=== PATIENT | female | born 1945 | race Caucasian/White ===

== ENCOUNTER 2017-06-01 08:33 | Inpatient (IN) | payer MEDICARE ==
[~2017-06-01] VITALS: Ht 162.6 cm; Wt 120.0 kg
[2017-06-01] MEDS ORDERED: OXYBUTYNIN10 MG PO (08:49)
[2017-06-01] MEDS ORDERED: METOPROLOL50 M1 PO (08:50)
[2017-06-01] MEDS ORDERED: AMLODIPINE5 MG PO (08:51)
[2017-06-01] MEDS ORDERED: LOSARTAN POT50 MG PO (08:51)
[2017-06-01] MEDS ORDERED: FUROSEMIDE20 MG PO (08:52)
[2017-06-01] MEDS ORDERED: LEVOTHYROXIN75 MCG PO (08:52)
[2017-06-01] MEDS ORDERED: TEMAZEPAM15 MG PO (08:53)
[2017-06-01] MEDS ORDERED: ELAVIL (08:53)
[2017-06-01] MEDS ORDERED: RISPERDAL M1 MG PO (08:53)
[2017-06-01] MEDS ORDERED: MULT VITAMI1 PO (08:54)
[2017-06-01] MEDS ORDERED: ASPIRIN LOW DOS81 MG PO (08:54)
[2017-06-01] MEDS ORDERED: CITALOPRAM40 MG PO (08:54)
[2017-06-01] MEDS ORDERED: CITALOPRAM20 MG PO (08:55)
[2017-06-01] MEDS ORDERED: BREO ELLIPTA 101 INH (08:56)
[2017-06-01] MEDS ORDERED: LORCET 5-325 MG1 TAB (08:56)
[2017-06-01] MEDS ORDERED: CLONAZEP ODT0.5 MG PO (08:57)
[2017-06-01] MEDS ORDERED: LANTUS100 UNIT/M (08:57)
[2017-06-01 09:19] LABS: HEMATOCRIT 39.5 % (37.0-47.0); HEMOGLOBIN 12.7 g/dl (12.0-16.0); IMMATURE GRANULOCYTES 0.3 % (0.0-1.0); MEAN CELL VOLUME 95.9 fL CALC (80.0-100.0); MEAN CORPUSCULAR HGB 30.8 pG CALC (26.0-32.0); MEAN CORPUSCULAR HGB CONC 32.2 g/L CALC (32.0-36.0); NEUT# 6.16 thou/uL (2.00-7.15); RED BLOOD COUNT 4.12 mill/uL (4.20-5.60); RED CELL DISTRI WIDTH 13.8 % (11.5-15.5)
[2017-06-01 09:20] LABS: URINE BILIRUBIN - DIPSTICK NEGATIVE (NEGATIVE); URINE BLOOD DIPSTICK NEGATIVE (NEGATIVE); URINE CLARITY SLIGHT CLOUDY; URINE COLOR YELLOW; URINE GLUCOSE - DIPSTICK NEGATIVE (NEGATIVE); URINE KETONE NEGATIVE (NEGATIVE); URINE PROTEIN - DIPSTICK NEGATIVE (NEG-TRACE); URINE UROBILINOGEN - DIPSTICK 0.2 E.U./dL (0.2)
[2017-06-01 09:31] LABS: ALBUMIN 4.1 g/dL (3.2-5.0); ALKALINE PHOSPHATASE 99 u/l (38-126); ANION GAP 16 (6-22 (CALC)); BILIRUBIN, TOTAL 0.6 mg/dL (0.0-1.4); BUN 22 mg/dL (8-23); BUN/CREATININE RATIO 18 (12-20 (CALC)); CALCIUM 9.9 mg/dL (8.4-10.2); CARBON DIOXIDE 27 mmol/l (22-30); CHLORIDE 104 mmol/l (95-108); CREATININE 1.2 mg/dL (0.5-1.0); GFR 45 ML/MIN (>=60 (CALC)); GFR FOR AFR.AMER. 54 ML/MIN (>=60 (CALC)); GLUCOSE 149 mg/dL (82-115); POTASSIUM 4.1 mmol/l (3.5-5.1); SGOT/AST 29 u/l (9-36); SGPT/ALT 37 u/l (11-66); SODIUM 143 mmol/l (137-146); TOTAL PROTEIN 7.3 g/dL (6.3-8.2)
[2017-06-01 09:34] LABS: URINE LEUK ESTERASE SMALL (NEGATIVE); URINE NITRITE - DIPSTICK POSITIVE (Negative)
[2017-06-01 09:41] LABS: URINE BACTERIA MANY hpf; URINE RBC 0-2 RBC/hpf (0-5)
[2017-06-01 09:43] LABS: MYOGLOBIN 44 ng/mL (0 - 62)
[2017-06-01 12:18] VITALS: BP 126/58
[2017-06-01 16:45] VITALS: BP 129/60
[2017-06-01 19:33] VITALS: BP 123/51
[2017-06-01 23:29] VITALS: BP 127/47
[2017-06-02 04:30] VITALS: BP 127/58
[2017-06-02 05:37] LABS: HEMATOCRIT 32.8 % (37.0-47.0); HEMOGLOBIN 10.4 g/dl (12.0-16.0); IMMATURE GRANULOCYTES 0.4 % (0.0-1.0); MEAN CELL VOLUME 95.9 fL CALC (80.0-100.0); MEAN CORPUSCULAR HGB 30.4 pG CALC (26.0-32.0); MEAN CORPUSCULAR HGB CONC 31.7 g/L CALC (32.0-36.0); NEUT# 6.79 thou/uL (2.00-7.15); RED BLOOD COUNT 3.42 mill/uL (4.20-5.60); RED CELL DISTRI WIDTH 14.1 % (11.5-15.5)
[2017-06-02 05:47] LABS: ANION GAP 10 (6-22 (CALC)); BUN 19 mg/dL (8-23); BUN/CREATININE RATIO 19 (12-20 (CALC)); CALCIUM 8.8 mg/dL (8.4-10.2); CARBON DIOXIDE 26 mmol/l (22-30); CHLORIDE 110 mmol/l (95-108); GFR 55 ML/MIN (>=60 (CALC)); GFR FOR AFR.AMER. > 60 ML/MIN (>=60 (CALC)); GLUCOSE 79 mg/dL (82-115); POTASSIUM 3.9 mmol/l (3.5-5.1); SODIUM 141 mmol/l (137-146)
[2017-06-02 08:22] VITALS: BP 129/54
[2017-06-02 11:00] VITALS: BP 128/62
[2017-06-02] MEDS ORDERED: KEFLEX500 M1 PO (12:57)
== END 2017-06-02 15:05 | disposition home or self-care (01) | DRG 872 ==
LOC: ED 08:33 → ED-I 10:14 → ED 10:50 → MS2 10:51
PROVIDERS: Emergency Medicine; ADMIT Internal Medicine; ATTEND Internal Medicine
DX: A41.9 Sepsis, unspecified organism (principal); N17.9 Acute kidney failure, unspecified; E87.2 Acidosis; E11.22 Type 2 diabetes mellitus with diabetic chronic kidney disease; N39.0 Urinary tract infection, site not specified; Z68.42 Body mass index [BMI] 45.0-49.9, adult; R65.20 Severe sepsis without septic shock; B96.20 Unspecified Escherichia coli [E. coli] as the cause of diseases classified elsewhere; J44.9 Chronic obstructive pulmonary disease, unspecified; E03.9 Hypothyroidism, unspecified; E86.0 Dehydration; E66.9 Obesity, unspecified; F32.9 Major depressive disorder, single episode, unspecified; G89.29 Other chronic pain; M54.5 Low back pain; I12.9 Hypertensive chronic kidney disease with stage 1 through stage 4 chronic kidney disease, or unspecified chronic kidney disease; N18.2 Chronic kidney disease, stage 2 (mild); Z79.4 Long term (current) use of insulin

== ENCOUNTER 2018-07-10 16:48 | Emergency (ER) | payer MEDICARE ==
[~2018-07-10] VITALS: Ht 162.6 cm; Wt 118.0 kg
[~2018-07-10 16:48] MED LIST: AMLODIPINE5 MG PO; ASPIRIN LOW DOS81 MG PO; BREO ELLIPTA 101 INH; CITALOPRAM20 MG PO; CITALOPRAM40 MG PO; CLONAZEP ODT0.5 MG PO; ELAVIL; FUROSEMIDE20 MG PO; KEFLEX500 M1 PO; LANTUS100 UNIT/M; LEVOTHYROXIN75 MCG PO; LORCET 5-325 MG1 TAB; LOSARTAN POT50 MG PO; METOPROLOL50 M1 PO; MULT VITAMI1 PO; OXYBUTYNIN10 MG PO; RISPERDAL M1 MG PO; TEMAZEPAM15 MG PO
[2018-07-10 18:02] LABS: HEMATOCRIT 37.6 % (37.0-47.0); HEMOGLOBIN 11.8 g/dl (12.0-16.0); IMMATURE GRANULOCYTES 0.3 % (0.0-5.0); MEAN CELL VOLUME 94.2 fL CALC (80.0-100.0); MEAN CORPUSCULAR HGB 29.6 pG CALC (26.0-32.0); MEAN CORPUSCULAR HGB CONC 31.4 g/L CALC (32.0-36.0); NEUT# 3.61 thou/uL (2.00-7.15); RED BLOOD COUNT 3.99 mill/uL (4.20-5.60); RED CELL DISTRI WIDTH 12.8 % (11.5-15.5)
[2018-07-10 18:18] LABS: ALBUMIN 3.9 g/dL (3.2-5.0); BILIRUBIN, TOTAL 0.4 mg/dL (0.0-1.4); CREATININE 1.1 mg/dL (0.5-1.0); POTASSIUM 4.6 mmol/l (3.5-5.1); TOTAL PROTEIN 6.7 g/dL (6.3-8.2)
[2018-07-10] MEDS ORDERED: PERCOCET 5/325M1 TAB PO (18:26)
[2018-07-10] MEDS ORDERED: CLEOCIN300 MG PO (18:26)
[2018-07-10 20:10] VITALS: BP 168/69
== END 2018-07-10 20:10 | disposition home or self-care (01) ==
LOC: ED 16:48
PROVIDERS: Emergency Medicine
PROC: 0H97XZZ Drainage of Abdomen Skin, External Approach (ICD-10-PCS; principal; 2018-07-10)
DX: L02.211 Cutaneous abscess of abdominal wall (principal); B95.62 Methicillin resistant Staphylococcus aureus infection as the cause of diseases classified elsewhere

== ENCOUNTER 2019-01-12 20:28 | Emergency (ER) | payer MEDICARE ==
[~2019-01-12] VITALS: Ht 162.6 cm; Wt 127.3 kg
[~2019-01-12 20:28] MED LIST changes: +CLEOCIN300 MG PO; +PERCOCET 5/325M1 TAB PO
[2019-01-12 22:17] LABS: URINE BILIRUBIN - DIPSTICK NEGATIVE (NEGATIVE); URINE BLOOD DIPSTICK NEGATIVE (NEGATIVE); URINE COLOR YELLOW; URINE GLUCOSE - DIPSTICK NEGATIVE (NEGATIVE); URINE KETONE TRACE mg/dL (NEGATIVE); URINE NITRITE - DIPSTICK NEGATIVE (Negative); URINE PH 5.5 (4.5-8.0); URINE PROTEIN - DIPSTICK NEGATIVE (NEG-TRACE); URINE SPECIFIC GRAVITY 1.025
[2019-01-12 22:20] LABS: URINE LEUK ESTERASE SMALL (NEGATIVE)
[2019-01-12 22:26] LABS: HEMATOCRIT 39.7 % (37.0-47.0); HEMOGLOBIN 12.4 g/dl (12.0-16.0); IMMATURE GRANULOCYTES 0.4 % (0.0-5.0); MEAN CELL VOLUME 94.5 fL CALC (80.0-100.0); MEAN CORPUSCULAR HGB 29.5 pG CALC (26.0-32.0); MEAN CORPUSCULAR HGB CONC 31.2 g/L CALC (32.0-36.0); NEUT# 5.39 thou/uL (2.00-7.15); RED BLOOD COUNT 4.2 mill/uL (4.20-5.60); RED CELL DISTRI WIDTH 13.6 % (11.5-15.5)
[2019-01-12 22:35] LABS: ALBUMIN 3.9 g/dL (3.2-5.0); BILIRUBIN, TOTAL 0.4 mg/dL (0.0-1.4); CREATININE 1.1 mg/dL (0.5-1.0); POTASSIUM 4.4 mmol/l (3.5-5.1); TOTAL PROTEIN 6.6 g/dL (6.3-8.2)
[2019-01-12 22:37] LABS: URINE BACTERIA MODERATE hpf; URINE SQUAMOUS EPITHELIAL CELL FEW EPI/hpf (0-FEW)
[2019-01-12] MEDS ORDERED: CEPHALEXIN500 M1 PO (23:39)
[2019-01-13 01:59] VITALS: BP 170/73
== END 2019-01-13 02:15 | disposition home or self-care (01) ==
LOC: ED 20:28
PROVIDERS: Emergency Medicine
DX: N39.0 Urinary tract infection, site not specified (principal); B96.20 Unspecified Escherichia coli [E. coli] as the cause of diseases classified elsewhere; E11.9 Type 2 diabetes mellitus without complications; Z79.4 Long term (current) use of insulin; I10 Essential (primary) hypertension

== ENCOUNTER 2023-10-09 16:34 | Inpatient (IN) | payer MEDICARE ==
[2023-10-09] VITALS (16 sets, daily range): BP systolic 74–133; BP diastolic 24–61
[~2023-10-09] VITALS: Ht 157.5 cm; Wt 111.2 kg
[~2023-10-09 16:34] MED LIST changes: -AMLODIPINE5 MG PO; -BREO ELLIPTA 101 INH; +CEPHALEXIN500 M1 PO; -CLONAZEP ODT0.5 MG PO; -ELAVIL; +ELAVIL25 M1 PO; +KLONOPIN1 MG PO; +LANTUS100 UNIT SC; -LANTUS100 UNIT/M; -LORCET 5-325 MG1 TAB; +LORTAB 1010 MG PO; -METOPROLOL50 M1 PO; +NORVASC5 M1 PO; +OXYBUTYNIN CHLO10 MG PO; -OXYBUTYNIN10 MG PO; -RISPERDAL M1 MG PO; +RISPERDAL0.5 MG PO; +TOPROL XL50 MG PO; +TRELEGY ELLIPTA1 AER PO
--- NOTE | 2023-10-09 16:34 | NUR ---
PT TO ER ROOM 2 VIA EMS.
[2023-10-09 17:23] LABS: BASO% 0.1 % (0-3); HEMATOCRIT 39.6 % (37.0-47.0); HEMOGLOBIN 12.9 g/dl (12.0-16.0); IMMATURE GRANULOCYTES 0.5 % (0.0-5.0); LYMPH% 6.3 % (15-41); MEAN CORPUSCULAR HGB 29.2 pG CALC (26.0-32.0); MEAN CORPUSCULAR HGB CONC 32.6 g/dL CAL (32.0-36.0); MONO% 3.2 % (2-13); NEUT# 7.08 thou/uL (2.00-7.15); NEUT% 89.9 % (42-76); RED BLOOD COUNT 4.42 mill/uL (4.20-5.60); RED CELL DISTRI WIDTH 12.4 % (11.5-15.5)
[2023-10-09 17:25] LABS: MEAN CELL VOLUME 89.6 fL CALC (80.0-100.0)
[2023-10-09 17:32] LABS: ALBUMIN 4.1 g/dL (3.2-5.0); ALKALINE PHOSPHATASE 118 u/l (38-126); ANION GAP 14 (6-22 (CALC)); BUN 31 mg/dL (8-23); BUN/CREATININE RATIO 21 (12-20 (CALC)); CARBON DIOXIDE 23 mmol/l (22-30); CHLORIDE 103 mmol/l (95-108); CREATININE 1.5 mg/dL (0.5-1.0); GFR FOR AFR.AMER. 41 ML/MIN (>=60 (CALC)); GFR OTHER RACES 34 ML/MIN (>=60 (CALC)); POTASSIUM 4.7 mmol/l (3.5-5.1); SODIUM 135 mmol/l (137-146); TOTAL PROTEIN 7.1 g/dL (6.3-8.2)
[2023-10-09 17:36] LABS: BILIRUBIN, TOTAL 0.7 mg/dL (0.02-1.3); SGOT/AST 51 u/l (9-36)
--- NOTE | 2023-10-09 18:05 | NUR ---
PT RESTINGIN BED. VSS. FAMILY AT BEDSIDE. PT DENIES ANY NEEDS AT THIS TIME.
[2023-10-09 18:18] LABS: URINE BILIRUBIN - DIPSTICK Negative (NEGATIVE); URINE BLOOD DIPSTICK Negative (NEGATIVE); URINE CLARITY Clear; URINE GLUCOSE - DIPSTICK Negative (NEGATIVE); URINE KETONE Negative (NEGATIVE); URINE LEUK ESTERASE Trace (Negative); URINE NITRITE - DIPSTICK Negative (Negative); URINE PROTEIN - DIPSTICK Negative (NEG-TRACE); URINE UROBILINOGEN - DIPSTICK 0.2 E.U./dL (0.2)
[2023-10-09 18:19] LABS: URINE COLOR Yellow
--- NOTE | 2023-10-09 18:55 | NUR ---
MD IN ROOM WITH PATIENT TO DISCUSS PLAN OF CARE
[2023-10-09] MEDS ORDERED: COZAAR100 MG PO (19:03)
[2023-10-09] MEDS ORDERED: WELLBUTRIN XL300 MG PO (19:06)
--- NOTE | 2023-10-09 20:29 | NUR ---
[facility]
--- NOTE | 2023-10-09 20:57 | NUR ---
PT ARRIVED FROM ER VIA STRETCHER ACCOMPANIED BY STAFF. IV SITE IS FREE FROM REDNESS OR EDEMA. HR IS REG, PULSES ARE STRONG X4, ABD IS SOFT WITH ACTIVE BS. BREATH SOUNDS ARE CLEAR AND DIMINISHED, CONTINUE TO OSBERVE AND MONITOR.
--- NOTE | 2023-10-10 00:10 | NUR ---
PT IS RELAXING IN BED WITH NO DISTRESS NOTED. IV SITE IS FREE FROM REDNESS OR EDEMA.
--- NOTE | 2023-10-10 04:20 | NUR ---
PT IS RESTING IN BED WITHOUT DIFFICULTY. IV SITE IS FREE FROM REDNESS OR EDEMA. TELE MONTIOR IN PLACE.
[2023-10-10 05:06] VITALS: BP 135/61
[2023-10-10 05:42] LABS: BASO% 0.1 % (0-3); IMMATURE GRANULOCYTES 0.1 % (0.0-5.0); LYMPH% 24.8 % (15-41); MEAN CELL VOLUME 90.7 fL CALC (80.0-100.0); MEAN CORPUSCULAR HGB 28.9 pG CALC (26.0-32.0); MEAN CORPUSCULAR HGB CONC 31.9 g/dL CAL (32.0-36.0); MONO% 6.2 % (2-13); NEUT# 4.77 thou/uL (2.00-7.15); NEUT% 68.8 % (42-76); RED BLOOD COUNT 3.56 mill/uL (4.20-5.60); RED CELL DISTRI WIDTH 12.7 % (11.5-15.5)
[2023-10-10 05:48] LABS: HEMATOCRIT 32.3 % (37.0-47.0); HEMOGLOBIN 10.3 g/dl (12.0-16.0)
[2023-10-10 05:58] LABS: BILIRUBIN, TOTAL 0.6 mg/dL (0.02-1.3); CREATININE 1.2 mg/dL (0.5-1.0)
[2023-10-10 06:01] LABS: ALBUMIN 2.8 g/dL (3.2-5.0); TOTAL PROTEIN 5.1 g/dL (6.3-8.2)
[2023-10-10 07:44] VITALS: BP 121/46
--- NOTE | 2023-10-10 07:55 | NUR ---
PT AOX3, TEMP 97.5 AT THIS TIME. REPORTS PAIN IN BACK "FROM LAYING DOWN" WILL PROVIDE MEDICATIONS.
[2023-10-10 08:16] VITALS: BP 121/46
[2023-10-10] MEDS ORDERED: VENTOLIN HFA108 MCG PO (11:03)
[2023-10-10] MEDS ORDERED: ATORVASTATIN CA20 MG PO (11:04)
[2023-10-10] MEDS ORDERED: ARICEPT10 MG PO (11:04)
[2023-10-10] MEDS ORDERED: MOUNJARO5 MG SC (11:05)
--- NOTE | 2023-10-10 11:13 | NUR ---
[facility] BEDSIDE SPEAKING WITH PT ABOUT PLAN OF CARE.
--- NOTE | 2023-10-10 11:13 | NUR ---
AT BEDSIDE DISCUSSING POC WITH PT.
--- NOTE | 2023-10-10 12:21 | NUR ---
LAB AT BEDSIDE
[2023-10-10] MEDS ORDERED: AMOX/K CLAV875 M1 PO (13:06)
[2023-10-10] MEDS ORDERED: DOXYCYCLINE100 MG PO (13:06)
--- NOTE | 2023-10-10 14:51 | NUR ---
reviewed discharge instructions with pt. gio'vishnu iv, pt states understanding of instructions.
--- NOTE | 2023-10-10 16:01 | NUR ---
PT LEFT THE FLOOR VIA WHEELCHAIR STAFF TRANSOPORT WITH BELONGING IN HAND AND FAMILY AT HER SIDE.
--- NOTE | 2023-10-14 11:12 | NUR ---
Discharge follow up call completed today, 10/14/23. Mother states patient is so much better. They are grateful for the outstanding care the patient received and the kindness of staff. Patient is taking prescribed medication as directed without issue. Patient has a follow up appointment scheduled tomorrow. No needs or concerns to address at this time. Mother again expresses her profound gratitude for care her daughter received.
== END 2023-10-10 15:58 | disposition home or self-care (01) | DRG 195 ==
LOC: ED 16:34 → MS2 19:19
PROVIDERS: Emergency Medicine; Nurse Practitioner Family; ADMIT Student in an Organized Health Care Education/Training Program; ATTEND Student in an Organized Health Care Education/Training Program
DX: J18.9 Pneumonia, unspecified organism (principal); J43.9 Emphysema, unspecified; I10 Essential (primary) hypertension; E11.9 Type 2 diabetes mellitus without complications; E03.9 Hypothyroidism, unspecified; F32.A Depression, unspecified; G89.29 Other chronic pain; Z87.440 Personal history of urinary (tract) infections; Z79.4 Long term (current) use of insulin; Z87.891 Personal history of nicotine dependence; Z20.822 Contact with and (suspected) exposure to COVID-19
CPT/HCPCS: J1650; J3370

== ENCOUNTER 2024-04-09 19:07 | Emergency (ER) | payer MEDICARE ==
[~2024-04-09] VITALS: Ht 160 cm; Wt 97.0 kg
[~2024-04-09 19:07] MED LIST changes: +AMOX/K CLAV875 M1 PO; +ARICEPT10 MG PO; +ATORVASTATIN CA20 MG PO; +COZAAR100 MG PO; +DOXYCYCLINE100 MG PO; +MOUNJARO5 MG SC; +VENTOLIN HFA108 MCG PO; +WELLBUTRIN XL300 MG PO
[2024-04-09 19:14] VITALS: BP 127/54
[2024-04-09] MEDS ORDERED: SODIUM CHLORIDE 0.9% 1,000 ML IV ONE (19:20)
[2024-04-09 19:31] VITALS: BP 125/54
[2024-04-09 19:37] LABS: HEMATOCRIT 36.3 % (37.0-47.0); HEMOGLOBIN 11.4 g/dl (12.0-16.0); IMMATURE GRANULOCYTES 0.3 % (0.0-5.0); LYMPH% 42.9 % (15-41); MEAN CELL VOLUME 92.6 fL CALC (80.0-100.0); MEAN CORPUSCULAR HGB 29.1 pG CALC (26.0-32.0); MEAN CORPUSCULAR HGB CONC 31.4 g/dL CAL (32.0-36.0); MONO% 8.8 % (2-13); NEUT# 1.92 thou/uL (2.00-7.15); RED BLOOD COUNT 3.92 mill/uL (4.20-5.60); RED CELL DISTRI WIDTH 12.4 % (11.5-15.5)
[2024-04-09 19:51] LABS: ALBUMIN 3.3 g/dL (3.2-5.0); ALKALINE PHOSPHATASE 96 u/l (38-126); ANION GAP 6 (6-22 (CALC)); BILIRUBIN, TOTAL 0.4 mg/dL (0.02-1.3); BUN 26 mg/dL (8-23); BUN/CREATININE RATIO 15 (12-20 (CALC)); CARBON DIOXIDE 25 mmol/l (22-30); CHLORIDE 109 mmol/l (95-108); CPK 79 u/l (30-135); CREATININE 1.8 mg/dL (0.5-1.0); ESTIMATED GFR 29 ML/MIN (>=90 (CALC)); MAGNESIUM 2.1 mg/dL (1.6-2.3); POTASSIUM 4.2 mmol/l (3.5-5.1); SGOT/AST 23 u/l (9-36); SODIUM 136 mmol/l (137-146); TOTAL PROTEIN 5.8 g/dL (6.3-8.2)
[2024-04-09 20:08] VITALS: BP 129/50
[2024-04-09 20:13] LABS: URINE BLOOD DIPSTICK Negative (NEGATIVE); URINE GLUCOSE - DIPSTICK Negative (NEGATIVE); URINE KETONE Negative (NEGATIVE); URINE NITRITE - DIPSTICK Negative (Negative); URINE PH 5.5 (4.5-8.0); URINE PROTEIN - DIPSTICK Negative (NEG-TRACE)
[2024-04-09 20:14] LABS: URINE COLOR Yellow; URINE LEUK ESTERASE Small (NEGATIVE)
[2024-04-09 20:19] LABS: URINE WBC 20-50 WBC/hpf (0-5)
[2024-04-09 20:20] LABS: URINE RBC 0-2 RBC/hpf (0-5)
[2024-04-09 20:21] LABS: URINE BACTERIA MANY hpf; URINE SQUAMOUS EPITHELIAL CELL FEW EPI/hpf (0-FEW)
[2024-04-09 20:21] LABS: TSH, 3RD GENERATION 0.92 uIU/mL (0.47 - 4.68)
[2024-04-09 20:22] LABS: URINE HYALINE CAST FEW lpf (NONE-RARE)
[2024-04-09 20:30] VITALS: BP 125/47
[2024-04-09] MEDS ORDERED: SULFAMETHOXAZOLE W/TRIMETHOPRI 1 COMBO TAB PO ONE (20:55)
[2024-04-09] MEDS ORDERED: BACTRIM DS1 TAB PO (20:55)
[2024-04-09 21:01] VITALS: BP 141/64
[2024-04-09 21:20] VITALS: BP 141/64
== END 2024-04-09 21:20 | disposition home or self-care (01) ==
LOC: ED 19:07
PROVIDERS: Family Medicine
DX: N39.0 Urinary tract infection, site not specified (principal); B96.1 Klebsiella pneumoniae [K. pneumoniae] as the cause of diseases classified elsewhere; I10 Essential (primary) hypertension; E11.9 Type 2 diabetes mellitus without complications; J44.9 Chronic obstructive pulmonary disease, unspecified; F32.A Depression, unspecified; E03.9 Hypothyroidism, unspecified; L89.321 Pressure ulcer of left buttock, stage 1; Z20.822 Contact with and (suspected) exposure to COVID-19

== ENCOUNTER 2024-08-31 17:34 | Inpatient (IN) | payer MEDICARE ==
[~2024-08-31] VITALS: Ht 160 cm; Wt 99.2 kg
[2024-08-31] VITALS (56 sets, daily range): BP systolic 71–126; BP diastolic 18–55
[~2024-08-31 17:34] MED LIST changes: +AMITRIPTYLINE H50 MG PO; -ATORVASTATIN CA20 MG PO; +BACTRIM DS1 TAB PO; -ELAVIL25 M1 PO; +LIPITOR80 M1 PO; -RISPERDAL0.5 MG PO; +RISPERDAL1 MG PO
--- NOTE | 2024-08-31 17:34 | NUR ---
PATIENT ARRIVED TO ER VIA EMS. PATIENT AWAKE, ALERT AND STABLE. NO DISTRESS NOTED. PHYSICIAN AT BEDSIDE.
[2024-08-31] MEDS ORDERED: SODIUM CHLORIDE 0.9% 1,000 ML IV ONE ×2 (18:10→18:50)
[2024-08-31] MEDS ORDERED: KETOROLAC TROMETHAMINE 15 MG/ML SDV IV ONE (18:10)
[2024-08-31] MEDS ORDERED: MORPHINE SULFATE 4 MG/ML VIAL IV ONE (18:10)
[2024-08-31] MEDS ORDERED: ONDANSETRON HCl 4 MG/2 ML SDV IV ONE (18:10)
[2024-08-31 18:17] LABS: HEMATOCRIT 32.4 % (37.0-47.0); HEMOGLOBIN 10.3 g/dl (12.0-16.0); IMMATURE GRANULOCYTES 0.2 % (0.0-5.0); LYMPH% 3.6 % (15-41); MEAN CORPUSCULAR HGB 28.6 pG CALC (26.0-32.0); MEAN CORPUSCULAR HGB CONC 31.8 g/dL CAL (32.0-36.0); MONO% 1.2 % (2-13); NEUT# 5.5 thou/uL (2.00-7.15); RED BLOOD COUNT 3.6 mill/uL (4.20-5.60); RED CELL DISTRI WIDTH 13.3 % (11.5-15.5)
[2024-08-31 18:39] LABS: ALBUMIN 3.3 g/dL (3.2-5.0); POTASSIUM 3.5 mmol/l (3.5-5.1); TOTAL PROTEIN 6.1 g/dL (6.3-8.2)
[2024-08-31 18:40] LABS: BILIRUBIN, TOTAL 1.5 mg/dL (0.02-1.3); CREATININE 3.2 mg/dL (0.5-1.0)
--- NOTE | 2024-08-31 19:00 | NUR ---
RECEIVED REPORT FROM SUMA NEFF AT THIS TIME, PT IVF RUNNING, UPDATED ON NEED FOR URINE SPECIMEN, PT VOICES UNDERSTANDING, PT IS A&OX3, NAD NOTED, PT AWAITING ALL FURTHER RESULTS/ORDERS.
--- NOTE | 2024-08-31 19:10 | NUR ---
PT NOTED WITH HYPOTENSION AT THIS TIME, IVF RUNNING, PT PLACED IN PARTIAL [place] AT THIS TIME, PT REMAINS ALERT AND ORIENTED X3, PT URINE COLLECTED, AWAITING ALL FURTHER ORDERS AND WILL CONTINUE TO MONITOR.
[2024-08-31 19:14] LABS: URINE BLOOD DIPSTICK Moderate (NEGATIVE); URINE GLUCOSE - DIPSTICK Negative (NEGATIVE); URINE KETONE Negative (NEGATIVE); URINE NITRITE - DIPSTICK Negative (Negative); URINE PROTEIN - DIPSTICK 100 mg/dL (NEG-TRACE); URINE SPECIFIC GRAVITY >=1.030
[2024-08-31 19:15] LABS: URINE COLOR Dark yellow; URINE LEUK ESTERASE Small (NEGATIVE)
[2024-08-31 19:19] LABS: URINE SQUAMOUS EPITHELIAL CELL FEW EPI/hpf (0-FEW)
[2024-08-31 19:20] LABS: URINE AMORPH SEDIMENT MANY hpf (NONE-FEW); URINE BACTERIA FEW hpf
--- NOTE | 2024-08-31 20:12 | NUR ---
AT BEDSIDE FOR DISCUSSION OF RESULTS.
[2024-08-31] MEDS ORDERED: NOREPINEPHRINE BITARTRATE 4 MG in DEXTROSE 5% 250 ML IV ONE (20:15)
[2024-08-31] MEDS ORDERED: SODIUM CHLORIDE 0.9% 250 ML IV ONE (20:15)
--- NOTE | 2024-08-31 20:30 | NUR ---
PT REMAINS WITH HYPOTENSION, MD VOICES WILL PLACE ORDERS AND CENTRAL LINE, PT UPDATED ON CONTINUOUS PLAN OF CARE, CONSENT OBTAINED, PT VOICES UNDERSTANDING, MD AT BEDSIDE FOR DISCUSSION OF RESULTS AND PLAN OF CARE. ABX RUNNING AT THIS TIME.
[2024-08-31] MEDS ORDERED: VANCOMYCIN HCL 1 GM in SODIUM CHLORIDE 0.9% 250 ML IV ONE (20:35)
--- NOTE | 2024-08-31 20:43 | NUR ---
MD AT BEDSIDE FOR CENTRAL LINE PLACEMENT AT THIS TIME, LEVOPHED GTT BEGAN AT THIS TIME, HOME HEALTH LPN AT BEDSIDE FOR MONITORING OF B/P. WILL CONTINUE TO MONITOR.
[2024-08-31] MEDS ORDERED: ACETAMINOPHEN 325 MG/TAB PO PRN (20:50)
[2024-08-31] MEDS ORDERED: MAGNESIUM HYDROXIDE 30 ML UDC PO PRN (20:50)
[2024-08-31] MEDS ORDERED: SODIUM CHLORIDE 0.9% 1,000 ML IV PRN (20:50)
[2024-08-31] MEDS ORDERED: Heparin SODIUM (Porcine) 5,000 UNITS/ML SDV SC SCH (21:00)
--- NOTE | 2024-08-31 21:10 | NUR ---
MD COMPLETED CENTRAL LINE PLACEMENT AT THIS TIME, AWAITING ALL FURTHER ORDERS AND CONFIRMATION AT THIS TIME.
[2024-08-31] MEDS ORDERED: CEFEPIME HYDROCHLORIDE 1 GM in SODIUM CHLORIDE 0.9% 50 ML IV SCH (22:00)
--- NOTE | 2024-08-31 22:25 | NUR ---
PT MEDICATED PER ORDERS AT THIS TIME, PT UPDATED ON CONTINUOUS PLAN OF CARE WITH NO FURTHER QUESTIONS OR CONCERNS AT THIS TIME, PT VOICES APPRECIATION OF CARE, AWAITING RM ASSIGNMENT AND ALL FURTHER ORDERS AT THIS TIME.
[2024-08-31] MEDS ORDERED: clonazePAM 1 MG/TAB PO PRN (23:10)
[2024-08-31] MEDS ORDERED: HYDROcodone/Acetaminophen 1 COMBO TAB PO PRN (23:10)
--- NOTE | 2024-08-31 23:30 | NUR ---
PT GIVEN BED BATH AND CHANGED FOR SMALL URINE INCONTINENCE AT THIS TIME, PT TRANSFERRED OVER TO MS2 BED AND PLACED IN ER RM #[id number]. PT UPDATED ON CONTINUOUS PLAN OF CARE,GTT IN PLACE WITH ABX RUNNING, PT AWAITING CT SCAN DUE TO POSSIBLE INCORRECT PLACEMENT OF CENTRAL LINE AT THIS TIME. WILL CONTINUE TO MONITOR, PT VOICES "I FEEL BETTER" AT THIS TIME, PT UPDATED ON CONTINUOUS PLAN OF CARE WITH NO FURTHER QUESTIONS, PT B/P MAINTAINED AT THIS TIME.
[2024-09-01] VITALS (100 sets, daily range): BP systolic 72–155; BP diastolic 28–93
[2024-09-01] MEDS ORDERED: NOREPINEPHRINE BITARTRATE 4 MG/VIAL SDV ONE (00:06)
--- NOTE | 2024-09-01 00:15 | NUR ---
PT RETURNED FROM CT SCAN AT THIS TIME, GTT MAINTAINED AT THIS TIME, IVF RUNNING AND ABX RUNNING AT THIS TIME. PT REMAINS ALERT AND ORIENTED X4, PT PUREWICK PLACED AT THIS TIME AND PT REPOSITIONED FOR COMFORT DUE TO MILD PRESSURE ULCER TO BUTTOCKS. PT CONNECTED TO CONTINUOUS MONITORING AT THIS TIME, CALL LIGHT IN REACH.
--- NOTE | 2024-09-01 00:45 | NUR ---
MD AT BEDSIDE TO REMOVE CENTRAL LINE DUE TO INCORRECT PLACEMENT AT THIS TIME, PRESSURE DRESSING AND BAG IN PLACE FOR ASSISTANCE WITH BLEEDING, INWEAVER WILL MONITOR AT THIS TIME, GTT REMAIN IN PLACE WITH IVF.
--- NOTE | 2024-09-01 01:00 | NUR ---
PT MEDICATED PER ORDERS FOR PAIN AT THIS TIME, VERBALIZES PAIN 7/10 AT THIS TIME IN BILATERAL LOWER EXTREMITIES, PT ADDITIONALLY REPOSITIONED, UPDATED ON CONTINUOUS PLAN OF CARE WITH NO FURTHERQUESTIONS OR CONCERNS AT THIS TIME, PT REMAINS ALERT AND APPROPRIA
--- NOTE | 2024-09-01 02:40 | NUR ---
PT B/P REMAINS STABLE AT THIS TIME, UPDATED ON CONTINUOUS PLAN OF CARE WITH NO FURTHER QUESTIONS OR CONCERNS, PT REPORTS PAIN SUBSIDED AT THIS TIME IN BILATERAL LOWER EXTREMITIES. WORKPLACE RELATIONS ADVISER WILL CONINUE TO MONITOR, IVF MAINTENANCE CONTINUE TO RUN WITH PRESSURE DRESSING IN PLACE.
--- NOTE | 2024-09-01 03:40 | NUR ---
PT RESTING AT THIS TIME, EASILY AROUSABLE, NAD NOTED, B/P REMAINS STABLE, GTT TITRATED PER ORDERS FOR WEANING, PT IVF MAINTENANCE REMAINS IN PLACE, CONTINUOUS MONITORING REMAINS, CALL LIGHT IN REACH.
--- NOTE | 2024-09-01 04:45 | NUR ---
LAB AT BEDSIDE FOR MORNING DRAWS, B/P REMAINS STABLE AT THIS TIME, IVF MAINTENANCE RUNNING. CALL LIGHT IN REACH, PT ON CONTINUOUS MONITOR, WILL CONTINUE TO MONITOR.
[2024-09-01 05:13] LABS: HEMATOCRIT 30.3 % (37.0-47.0); HEMOGLOBIN 9.8 g/dl (12.0-16.0); MEAN CELL VOLUME 91.5 fL CALC (80.0-100.0); MEAN CORPUSCULAR HGB 29.6 pG CALC (26.0-32.0); MEAN CORPUSCULAR HGB CONC 32.3 g/dL CAL (32.0-36.0); RED BLOOD COUNT 3.31 mill/uL (4.20-5.60); RED CELL DISTRI WIDTH 13.3 % (11.5-15.5)
[2024-09-01 05:25] LABS: BILIRUBIN, TOTAL 1.5 mg/dL (0.02-1.3); CREATININE 2.7 mg/dL (0.5-1.0); MAGNESIUM 1.8 mg/dL (1.6-2.3); POTASSIUM 3.6 mmol/l (3.5-5.1)
[2024-09-01 05:32] LABS: ALBUMIN 2.4 g/dL (3.2-5.0); TOTAL PROTEIN 4.8 g/dL (6.3-8.2)
--- NOTE | 2024-09-01 05:50 | NUR ---
PT MEDICATED PER ORDERS AT THIS TIME, PT VOICES NEED TO VOID, BUT UNABLE AT THIS TIME, PT BLADDER SCANNED AND NOTED AT 700ML, PT ASSISTED TO BSC X1 WITH SUCCESS OF TOTAL OUTPUT AT 800ML AT THIS TIME OF DARK/RANDI/FOUL ODOR URINE. PT REMAINS WITH STABILIZED B/P, GTT COMPLETED OF WEANING, IVF RUNNING MAINTENANCE AT 100ML/HR. PT VOICES APPRECIATION OF CARE.
[2024-09-01] MEDS ORDERED: LEVOTHYROXINE SODIUM 75 MCG/TAB PO SCH (06:00)
--- NOTE | 2024-09-01 07:20 | NUR ---
PT MEDICATED PER ORDERS AT THIS TIME, PT NOTED WITH MODERATE ANXIETY ATTACK, C/O RESTLESS LEGS AND SHAKING DUE TO FEAR OF BEING IN HOSPITAL, PT REDIRECTED AT THIS TIME AND UPDATED ON PLAN OF CARE AND MEDICATION ADMINISTRATION, PT EDUCATED ON RELAXATION TECHNIQUES AT THIS TIME, PT IVF MAINATNENCE MAINTAINED WITH CONTINUOUS MONITORING, AWAITING RELIEF OF ANXIETY AT THIS TIME.
--- NOTE | 2024-09-01 08:11 | NUR ---
Blood culture ID PCR result showing E coli. Called result to Dr Talley. No new orders at this time.
--- NOTE | 2024-09-01 08:28 | NUR ---
PT BROUGHT UP TO ICU AND IS NOW RESTING COMFORTABLY WITH BED IN LOW LOCKED POSITION AND CALL LIGHT WITHIN REACH.
[2024-09-01] MEDS ORDERED: DEXTROSE 250 ML IV PRN (08:55)
--- NOTE | 2024-09-01 10:00 | NUR ---
PT IS RESTING IN BED. CALL FISCHER IN REACH.
--- NOTE | 2024-09-01 10:21 | NUR ---
LEFT A MESSAGE WITH PT'S DAUGHTER TITO FOR HOME MED LIST.
--- NOTE | 2024-09-01 10:25 | NUR ---
REACHED OUT TO ED FOR DR. SINGH TO PLACE CENTRAL LINE. THEY SAID HE WOULD BE UP WHEN HE IS ABLE.
--- NOTE | 2024-09-01 10:25 | NUR ---
PT BLOOD PRESSURE IS TRENDING DOWN, 104/[address] HEAD NOTIFIED.
[2024-09-01] MEDS ORDERED: INSULIN LISPRO 100 UNITS/ML ML SC SCH (11:00)
--- NOTE | 2024-09-01 11:34 | NUR ---
UPDATED DR. HEAD ABOUT PT BP OF WITH A MAP OF 60. SEE NEW ORDERS.
[2024-09-01] MEDS ORDERED: NOREPINEPHRINE BITARTRATE 4 MG in SODIUM CHLORIDE 0.9% 250 ML IV PRN (11:50)
--- NOTE | 2024-09-01 11:55 | NUR ---
PT RESTING IN BED COMFORTABLY WITH BED IN LOW LOCKED POSITION AND CALL LIGHT WITHIN REACH.
[2024-09-01] MEDS ORDERED: MOUNJARO7.5 M1 SC (12:32)
[2024-09-01] MEDS ORDERED: CLOPIDOGREL75 MG PO (12:41)
[2024-09-01] MEDS ORDERED: LANTUS SOL100 UNIT/M SC (12:45)
--- NOTE | 2024-09-01 13:53 | NUR ---
PT AWAKE IN BED WITH DAUGHTER TITO VISITING AT BEDSIDE. SHE HAS NO COMPLAINTS AT THIS TIME, BED IN LOW LOCKED POSITION AND CALL LIGHT WITHIN REACH.
[2024-09-01] MEDS ORDERED: BAYER ASPIRIN E81 MG PO (14:34)
--- NOTE | 2024-09-01 15:45 | NUR ---
DR. SINGH PLACED CENTRAL LINE IN THE RIGHT IJ. STAT XRAY ORDERED TO CONFIRM PLACEMENT. PT TOLERATED PROCEDURE WELL AND IS RESTING IN BED WITH BED IN LOW LOCKED POSITION AND CALL LIGHT WITHIN REACH.
--- NOTE | 2024-09-01 16:09 | NUR ---
PT TOLERATED CENTRAL LINE PLACEMENT WELL AND IS LYING IN BED COMFORTABLY. PT'S FRIEND AT BEDSIDE VISITING. BED IN LOW LOCKED POSITION AND CALL LIGHT WITHIN REACH. SHE DENIES ANY COMPLAINTS AT THIS TIME.
--- NOTE | 2024-09-01 17:59 | NUR ---
PT SITTING UP IN BED EATING DINNER. NO COMPLAINTS AT THIS TIME, BED IN LOW LOCKED POSITION AND CALL LIGHT WITHIN REACH.
--- NOTE | 2024-09-01 19:30 | NUR ---
pt had a full bed bath, left prehospital EMS iv renmoved was leaking . a small skin tear dressing on left lower arm was resdressed. healing skin tear. small mepilex applied to right lower buttocks for small abrasion. all neededs met mouth cleaned with mouth wash. rinse and spit.
[2024-09-01] MEDS ORDERED: risperiDONE 0.5 MG/TAB PO SCH (21:00)
[2024-09-01] MEDS ORDERED: ATORVASTATIN CALCIUM 20 MG/TAB PO SCH (21:00)
[2024-09-02] VITALS (45 sets, daily range): BP systolic 70–143; BP diastolic 23–73
--- NOTE | 2024-09-02 | NUR ---
pt assisted x2 nurses to the bedside copmoode pt vouded 400cc/ godfrey urine .
--- NOTE | 2024-09-02 02:03 | NUR ---
pt rigors, temp oral;ly 101.4 treated with tylenol
--- NOTE | 2024-09-02 02:21 | NUR ---
pt drank water IVF going NS at 100cc/hr. ST on monitor. HR 112.on 4mcg levo
--- NOTE | 2024-09-02 03:58 | NUR ---
pt assisted out of bed to the bedside commode utrinated 550 dark godfrey urine , new yellow s9ocks provided and new pitcher of water . ivf at 100cc/hr levo at 4, labs drawn ,
[2024-09-02 04:29] LABS: HEMATOCRIT 27.5 % (37.0-47.0); HEMOGLOBIN 8.9 g/dl (12.0-16.0); MEAN CELL VOLUME 91.1 fL CALC (80.0-100.0); MEAN CORPUSCULAR HGB 29.5 pG CALC (26.0-32.0); MEAN CORPUSCULAR HGB CONC 32.4 g/dL CAL (32.0-36.0); RED BLOOD COUNT 3.02 mill/uL (4.20-5.60)
[2024-09-02 04:33] LABS: ALBUMIN 2.1 g/dL (3.2-5.0); BILIRUBIN, TOTAL 1.6 mg/dL (0.02-1.3); CREATININE 2.2 mg/dL (0.5-1.0); MAGNESIUM 1.8 mg/dL (1.6-2.3); POTASSIUM 3.4 mmol/l (3.5-5.1); TOTAL PROTEIN 4.4 g/dL (6.3-8.2)
--- NOTE | 2024-09-02 06:32 | NUR ---
spoke to Dr. Cheema on the phone this am about pt reviewed the night vitals fever last pm and curretn levo of 6. dark godfrey urine . approx 1000ml out of godfrey urine last pm . etc. md updated to vitals and pt condition . no orders at this time.
[2024-09-02] MEDS ORDERED: POTASSIUM CHLORIDE 20 MEQ/TAB PO SCH (08:00)
--- NOTE | 2024-09-02 08:00 | NUR ---
REPORT RECEIVED FROM NIGHT NURSE. PATIENT AXO X3. S1S2 NOTED, NORMAL SINUS ON TELE. UPPER LUNG SOUNDS CLEAR, LOWER DIMINISHED. ABDOMEN SOFT, NON DISTENDED, NON TENDER, WITH ACTIVE BOWEL SOUNDS. UPPER PULSES STRONG, LOWER WEAK. SKIN WDI. BRUSING NOTED TO UPPER EXTREMITIES. CALL LIGHT IN REACH.
--- NOTE | 2024-09-02 10:00 | NUR ---
PATIENT SITTING UP IN BED. DENIES NEEDS AT THIS TIME. CALL LIGHT IN REACH.
--- NOTE | 2024-09-02 11:20 | NUR ---
Pt consented to receive pneumococcal vaccination, however critically ill. Vaccination not recommended at this time.
[2024-09-02] MEDS ORDERED: dilTIAZem HCL 50 MG/10 ML SDV IV SCH (11:30)
--- NOTE | 2024-09-02 12:00 | NUR ---
PATIENT SITTNG UP IN BED WATCHING TV. ALL NEEDS MET. CALL LIGHT IN REACH.
[2024-09-02] MEDS ORDERED: DILTIAZEM HCL 125 MG in SODIUM CHLORIDE 0.9% 100 ML IV PRN (13:10)
--- NOTE | 2024-09-02 14:00 | NUR ---
PATIENT SITTING UP IN BED WATCHING TV. FAMILY AT BEDSIDE. ALL NEEDS MET. CALL LIGHT IN REACH.
--- NOTE | 2024-09-02 16:00 | NUR ---
PATIENT LAYING DOWN IN BED RESTING WITH EYES CLOSED. FAMILY AT BEDSIDE. ALL NEEDS MET. CALL LIGHT IN REACH.
--- NOTE | 2024-09-02 18:00 | NUR ---
PATIENT SITTING UP IN BED TALKING ON THE PHONE. ALL NEEDS MET. CALL LIGHT IN REACH. VSS.
--- NOTE | 2024-09-02 20:30 | NUR ---
pt assessment complete. pt is alert, awake, answers questions approp. pt complains of back pain. educated pt on med schedule. pt remains on cardizem gtt, hr a-fib, rvr. levophed gtt is @ 13 mcg/kr, bp is 120/43. pt repositioned in the bed. upon skin inspection, skin breakdown noted on coccyx. picture taken, placed in chart. fluids provided. call light in reach
--- NOTE | 2024-09-02 22:15 | NUR ---
PT RESTFUL, CONTINUES TO HAVE BACK PAIN. PT HAS REFUSED TO TURN ON SIDES, PT STATES SHE IS UNCOMFORTABLE, AND WANTS TO REMIAN LAYING ON BACK. EDUCATED ON NEED TO REPOSITION TO PREVENT FURTHER SKIN BREAKDOWN. NO CHANGES TO LEVO AND CARDIZEM GTT. V/S STABLE. CALL LIGHT IN REACH
[2024-09-03] VITALS (25 sets, daily range): BP systolic 93–142; BP diastolic 30–73
--- NOTE | 2024-09-03 00:10 | NUR ---
PT ASSISTED TO BSC. PT BACK IN BED, ADJUSTED TO COMFORT LEVEL. ENCOURAGED PT TO TURN ON HER SIDE TO ELEVIATE PRESSURE FROM COCCYX AREA, PT REFUSES, STATES HER BACK HURTS. CALL LIGHT IN REACH
[2024-09-03 07:46] LABS: BASO% 0.1 % (0-3); HEMATOCRIT 30.4 % (37.0-47.0); HEMOGLOBIN 9.7 g/dl (12.0-16.0); IMMATURE GRANULOCYTES 0.6 % (0.0-5.0); LYMPH% 5.9 % (15-41); MEAN CORPUSCULAR HGB CONC 31.9 g/dL CAL (32.0-36.0); MONO% 2.4 % (2-13); NEUT# 7.14 thou/uL (2.00-7.15); RED BLOOD COUNT 3.34 mill/uL (4.20-5.60); RED CELL DISTRI WIDTH 14.2 % (11.5-15.5)
[2024-09-03] MEDS ORDERED: MORPHINE SULFATE 4 MG/ML VIAL IV PRN (07:55)
[2024-09-03] MEDS ORDERED: HYDROcodone/Acetaminophen 1 COMBO TAB PO PRN (07:56)
--- NOTE | 2024-09-03 08:00 | NUR ---
REPORT RECEIVED FROM NIGHT RN. PATIENT AXO X3. S1S2 NOTED, A-FIB ON TELE. WHEEZES HEARD IN UPPER LOBES, DIMINISHED IN LOWER, DRY COUGH NOTED, EXERSIONAL SOB NOTED. ABDOMEN SOFT, NON DISTENDED, NON TENDER, WITH ACTIVE BOWEL SOUNDS. UPPER PULSES STRONG, LOWER WEAK. SKIN WARM AND DRY. MEPILEX DRESSING NOTED TO COCCYX CDI. CALL LIGHT IN REACH.
[2024-09-03 08:07] LABS: ALBUMIN 2.4 g/dL (3.2-5.0); BILIRUBIN, TOTAL 1.3 mg/dL (0.02-1.3); POTASSIUM 3.7 mmol/l (3.5-5.1)
[2024-09-03 08:15] LABS: TOTAL PROTEIN 5.3 g/dL (6.3-8.2)
[2024-09-03] MEDS ORDERED: METOPROLOL SUCCINATE 50 MG/TAB PO SCH (09:00)
[2024-09-03] MEDS ORDERED: cefTRIAXone SODIUM 2 GM in SODIUM CHLORIDE 0.9% 100 ML IV SCH (10:00)
--- NOTE | 2024-09-03 10:00 | NUR ---
PATIENT REQUESTED FOR HOB TO BE 45 DEGREES. PATIENT REFUSED TO TURN TO SIDE OR HAVE A PILLOW PUT UNDER HER HIP. EDUCATED ON IMPORTANCE OF TURNING DUE TO PRESSURE ULCER ON COCCYX. PATIENT STILL REFUSED.
--- NOTE | 2024-09-03 10:00 | NUR ---
PATIENT LAYING DOWN IN BED RESTING. ALL NEEDS MET. CALL LIGHT IN REACH.
--- NOTE | 2024-09-03 12:00 | NUR ---
PATIENT SITTING UP IN RECLINER EATING. FAMILY AT BEDSIDE. ALL NEEDS MET. CALL LIGHT IN REACH.
[2024-09-03] MEDS ORDERED: FUROSEMIDE 40 MG/4 ML SDV IV SCH (13:30)
--- NOTE | 2024-09-03 14:00 | NUR ---
PATIENT LAYING DOWN IN BED RESTING WITH EYES CLOSED. ALL NEEDS MET. CALL LIGHT IN REACH.
--- NOTE | 2024-09-03 16:00 | NUR ---
PATIENT SITTING UP IN BED TALKING ON THE PHONE. DENIES NEEDS AT THIS TIME. CALL LIGHT IN REACH.
--- NOTE | 2024-09-03 18:00 | NUR ---
PATIENT LAYING DOWN RESTING. ALL NEEDS MET. CALL LIGHT IN REACH.
--- NOTE | 2024-09-03 20:00 | NUR ---
PT ASSISTED FROM CHAIR TO BSC, THEN TO BED. ASSESSMENT COMPLETED. PT ALERT TO SELF, PLACE, TIME. PT HAD SOME INAPPROPRIATE VERBAGE, STATING "ITS A WAR GOING ON OUTSIDE," "THERE WAS A MAN TRYING TO HELP ME AND I TOLD HIM NO GET OUT," "I DONT KNOW WHATS GOING ON RIGHT NOW." PT DAUGHTER IS @ BEDSIDE. EDUCATED PT AND DAUGHTER THAT A SYMPTOM OF UTI'S COULD BE CONFUSION. PAIN MEDICATION COULD BE A FACTOR WELL. AN NIH/MEND WAS COMPLETED. PT HAS COMPLAINTS OF BACK PIAN. V/S STABLE. CALL LIGHT IN REACH
--- NOTE | 2024-09-03 22:00 | NUR ---
PT IS RESTING COMFORTABLY, NO COMPLAINTS OR NEEDS AT THIS TIME. V/S STABLE CALL LIGHT IN REACH
[2024-09-04] VITALS (36 sets, daily range): BP systolic 95–137; BP diastolic 29–68
--- NOTE | 2024-09-04 | NUR ---
PT RESTING COMFORTABLY. NO CHANGES. ENCOURAGED PT TO TURN ON SIDES TO PREVENT FURTHER SKIN BREAKDOWN, PT DOES NOT COMPLY, REMAINS IN SAME POSITION. V/S STABLE. CALL LIGHT IN REACH
--- NOTE | 2024-09-04 03:00 | NUR ---
PT ASSISTED TO BSC. PT STILL HAS SLIGHT INAPPROPRIATE VERBAGE, BUT IS A + O TO PPT PT COMPLAINS OF BACK PAIN. MEDICATED PER ORDERS. NO CHANGES NOTED. V/S STABLE. CALL LIGHT IN REACH
[2024-09-04 05:11] LABS: HEMATOCRIT 28.1 % (37.0-47.0); MEAN CELL VOLUME 92.1 fL CALC (80.0-100.0); MEAN CORPUSCULAR HGB 29.5 pG CALC (26.0-32.0); RED BLOOD COUNT 3.05 mill/uL (4.20-5.60); RED CELL DISTRI WIDTH 14.6 % (11.5-15.5)
[2024-09-04 05:44] LABS: MAGNESIUM 1.9 mg/dL (1.6-2.3); POTASSIUM 3.9 mmol/l (3.5-5.1)
[2024-09-04 05:45] LABS: ALBUMIN 1.9 g/dL (3.2-5.0); BILIRUBIN, TOTAL 0.7 mg/dL (0.02-1.3); TOTAL PROTEIN 4.1 g/dL (6.3-8.2)
--- NOTE | 2024-09-04 05:56 | NUR ---
PT RESTING COMFORTABLY. NO CHANGES NOTED. CARDIZEM AND LEVOPHED GTT'S REMAIN UNCHANGED. V/S STABLE. CALL LIGHT IN REACH
--- NOTE | 2024-09-04 07:07 | NUR ---
REPORT RECEIVED FROM NIGHT NURSE. PATIENT AXO X3. S1S2 NOTED, A-FIB ON TELE. UPPER LUNG SOUNDS CLEAR, LOWER DIMINISHED, NO COUGH NOTED, EXERSIONAL SOB NOTED. ABDOMEN SOFT, NON DISTENDED, NON TENDER, WITH ACTIVE BOWEL SOUNDS. UPPER PULSES STRONG, LOWER WEAK. SKIN WARM AND DRY. BRUSING NOTED TO UPPER EXTREMITIES, MEPILEX TO COCCYX CDI. CALL LIGHT IN REACH.
--- NOTE | 2024-09-04 07:30 | NUR ---
PATIENT HAS NOT HAD A BM SINCE 08/28/24. PATIENT STATES "IT IS NORMAL FOR ME TO ONLY GO ONCE EVERY COUPLE WEEKS EVEN AT HOME." OFFERED PATIENT A LAXITIVE, PATIENT DENIED.
--- NOTE | 2024-09-04 08:00 | NUR ---
PATIENT SITTING UP IN BED RESTING. ALL NEEDS MET. CALL LIGHT IN REACH. VSS.
--- NOTE | 2024-09-04 10:00 | NUR ---
PATIENT LAYING DOWN IN BED RESTING. DENIES NEEDS AT THIS TIME. CALL LIGHT IN REACH.
--- NOTE | 2024-09-04 10:00 | NUR ---
OFFERED TO TURN PATIENT, PATIENT DECLINED. EDUCATED ON IMPORTANCE FOR PRESSURE ULCER, PATIENT DECLINED TURN.
--- NOTE | 2024-09-04 12:00 | NUR ---
PATIENT SITTING UP IN BED. FAMILY AT BEDSIDE. ALL NEEDS MET. CALL LIGHT IN REACH.
--- NOTE | 2024-09-04 14:00 | NUR ---
PATIENT LAYING DOWN IN BED ASLEEP. ALL NEEDS MET. CALL LIGHT IN REACH.
--- NOTE | 2024-09-04 16:00 | NUR ---
PATIENT SITTING UP IN BED RESTING. DENIES NEEDS AT THIS TIME. CALL LIGHT IN REACH.
--- NOTE | 2024-09-04 18:00 | NUR ---
PATIENT LAYING DOWN IN BED RESTING. DENIES NEEDS AT THIS TIME. CALL LIGHT IN REACH.
[2024-09-04] MEDS ORDERED: methylPREDNISolone Sod Succ 40 MG/ML SDV IV SCH (21:16)
--- NOTE | 2024-09-04 21:16 | NUR ---
spooke to Dr. Cheema on the phone about pt , wheezing more left than right. reviewed pt voided 300 , dark yellow. ordered solumedrol.
--- NOTE | 2024-09-04 21:17 | NUR ---
Dr Cheema also panfiloed elvia [place] on his end for pt. RT contacted.
[2024-09-04] MEDS ORDERED: IPRATROPIUM-Albuterol 0.5MG-2.5MG/3 ML NEB PRN (21:20)
--- NOTE | 2024-09-04 21:58 | NUR ---
Dr. Cheema contacted againa fter breathing TX with RT and this RN on speaker phone. MD made aware pt sounded wet in arlette chest and chest Xray from today stated severe CHF . also made aware last oral lasix was given friday at 1330. MD ordered 40 IV lasix. pt given all meds and purewick in place. pt educated about plan of care. pt on tele monitorHR 95 , on levo at 12mcg/min
[2024-09-04] MEDS ORDERED: FUROSEMIDE 40 MG/4 ML SDV IV SCH (22:05)
[2024-09-05] VITALS (40 sets, daily range): BP systolic 109–149; BP diastolic 39–99
--- NOTE | 2024-09-05 01:04 | NUR ---
pt Afib RVR started back on cardizem gtt for HR 110-130. pt HR ranged from 109-130 . pt om cardizem gtt.
--- NOTE | 2024-09-05 01:27 | NUR ---
cardizem titrated now to 15mg/hr for HR that goeas between 100-120, levo on at 14mcg/min pt resting comfortably
--- NOTE | 2024-09-05 01:33 | NUR ---
hr 105-108 afib , pt comfortably. all needs met call gallardo within reach . purewick in place. measuring acurate i and o
--- NOTE | 2024-09-05 02:19 | NUR ---
pt voided 500 clear yellow , lung sounds are better , less couerse. 1600 out total from [employer]. pt assisteed with freash ice for her drink. respositioend in bed . call gallardo within reach , new levo bag . on levo 14mcg/min, cardizem 15mg/hr
--- NOTE | 2024-09-05 02:31 | NUR ---
titrated down levo 14-13. pt alox4. call gallardo within reach
--- NOTE | 2024-09-05 04:00 | NUR ---
pt rounded on , pt on levo and 12mcg/min and cardiozem 15mg/hr, labs drawn with a pause to the gtts. prior to drawing labs. pt resting comfortably, afebrile. purewick in place. on front desk monitor, call gallardo within reach . all needs met. lung sounds less course than earlier after diuressing 1600 from iv lasix.
[2024-09-05 04:33] LABS: HEMATOCRIT 30.9 % (37.0-47.0); HEMOGLOBIN 9.7 g/dl (12.0-16.0); MEAN CELL VOLUME 90.6 fL CALC (80.0-100.0); MEAN CORPUSCULAR HGB 28.4 pG CALC (26.0-32.0); MEAN CORPUSCULAR HGB CONC 31.4 g/dL CAL (32.0-36.0); RED BLOOD COUNT 3.41 mill/uL (4.20-5.60); RED CELL DISTRI WIDTH 14.8 % (11.5-15.5)
[2024-09-05 04:46] LABS: ALBUMIN 2.1 g/dL (3.2-5.0); BILIRUBIN, TOTAL 0.6 mg/dL (0.02-1.3); CREATININE 1.9 mg/dL (0.5-1.0); MAGNESIUM 1.9 mg/dL (1.6-2.3); POTASSIUM 4.1 mmol/l (3.5-5.1); TOTAL PROTEIN 4.6 g/dL (6.3-8.2)
--- NOTE | 2024-09-05 06:13 | NUR ---
pt rounded on , resting comfortbaly. awoke easily for , am synthroid, titrated levo down from 12 to 11 mcg/ min , cardizem remians at 12mg/hr. call gallardo withim reach , rate controlled afib on the monitor HR 89-90, all meeds met.
--- NOTE | 2024-09-05 06:24 | NUR ---
total 1900 out of urine clear yello documented in i and o
--- NOTE | 2024-09-05 08:00 | NUR ---
PT SITTING UP IN BED EATING BREAKFAST. NO COMPLAINTS VERBALIZED AT THIS TIME. BED IN LOW LOCKED POSITION AND CALL LIGHT WITHIN REACH.
[2024-09-05] MEDS ORDERED: CLOPIDOGREL BISULFATE 75 MG/TAB TAB PO SCH (09:00)
[2024-09-05] MEDS ORDERED: ESCITALOPRAM 10 MG/TAB PO SCH (09:00)
[2024-09-05] MEDS ORDERED: APIXABAN BASE 2.5 MG/TAB TAB PO SCH (09:00)
[2024-09-05] MEDS ORDERED: ASPIRIN EC 81 MG/TAB PO SCH (09:00)
[2024-09-05] MEDS ORDERED: FUROSEMIDE 40 MG/TAB PO SCH (09:00)
--- NOTE | 2024-09-05 10:00 | NUR ---
PT GIVEN BED BATH AND LINEN CHANGE. SHE IS NOW SITTING UP IN BED WITH DAUGHTER VISITING AT BEDSIDE. CALL LIGHT WITHIN REACH AND BED IN LOW LOCKED POSITION.
[2024-09-05] MEDS ORDERED: Polyethylene Glycol 3350 17 GM/PKT PO SCH (10:30)
[2024-09-05] MEDS ORDERED: DOCUSATE SODIUM 100 MG/CAP PO SCH (10:30)
--- NOTE | 2024-09-05 11:56 | NUR ---
PT RESTING IN BED WITH DAUGHTER STILL AT BEDSIDE. SHE VERBALIZES NO COMPLAINTS AT THIS TIME. BED IN LOW LOCKED POSITION AND CALL LIGHT WITHIN REACH.
--- NOTE | 2024-09-05 13:58 | NUR ---
PT RESTING IN BED COMFORTABLY WITH NO COMPLAINTS AT THIS TIME. CALL FISCHER WITHIN REACH AND BED IN LOW LOCKED POSITION.
--- NOTE | 2024-09-05 16:00 | NUR ---
ASSISTED THE PT TO THE BEDSIDE COMMODE WHERE SHE PASSED A SMALL BOWEL MOVEMENT. SHE IS NOW RESTING IN BED COMFORTABLY WATCHING TV. CALL LIGHT WITHIN REACH AND BED IN LOW LOCKED POSITION.
--- NOTE | 2024-09-05 18:03 | NUR ---
PT RESTING IN BED COMFORTABLY. NO COMPLAINTS AT THIS TIME. CALL LIGHT WITHIN REACH AND BED IN LOW LOCKED POSITION.
--- NOTE | 2024-09-05 20:14 | NUR ---
PT OOB TO BSC WITH MOD/MAX ASSIST FOR ATTEMPTED BM. CALL AALIYAH CHU REACH PT REQUESTING TO "SIT FOR A FEW MINUTES" PT EASILY VIVISBLE FROM [facility] STATION FOR SAFETY.
--- NOTE | 2024-09-05 20:24 | NUR ---
PT BCK TO BED WITH SAME ASSIST, CONTINENT OF MODERATE AMOUNT CLEAR YELLOW URINE AND MODERATE AMOUNT WHITE THICK MUCOUSY STOOL WELL MODERATE AMOUNT OF GAS, PT REQUIRES ASSIST WITH JULISSA CARE. PROVIDED NEEDED, SMALL AREA OF BREAKDOWN NOTED TO BUTTICKS.
--- NOTE | 2024-09-05 20:30 | NUR ---
RECEIVED REPORT FROM ATIYA HYPERBARIC WELDER DIVER. PT RESTING IN BED. PURWICK IN USE, LEVOPHED AND CARDIZEM DRIPS INFUSING. VSS. AFIB. NO DISTRESS. PT UPDATED ON PLAN TO WEAN MEDICATIONS TOLERATED.
--- NOTE | 2024-09-05 22:33 | NUR ---
LEVOPHED WEANED FROM 5MCG TO 2MCG. PT MAINTAING MAP 81 TO 85. NO DISTRSS. AFIB WITH HR 80 TO 99 BPM WHILE ASLEEP. PT'S HEAD REPOSITIONED TO MAINTAIN OPEN AIRWAY WHILE PT SLEEPS. NO DISTRESS.
--- NOTE | 2024-09-05 23:00 | NUR ---
MAP 66. LEVOPHED MAINTAINED AT 2MCG.
[2024-09-06] VITALS (53 sets, daily range): BP systolic 98–141; BP diastolic 48–90
--- NOTE | 2024-09-06 01:32 | NUR ---
PT OOB TO BSC - 2 PERSON ASSIST. PT VOIDED AND PASSED VERY LITTLE STOOL. +FLATULENCE. PT SOB WITH EXERTION. 02 PLACED REPLACED AT 2L VIA NC. PT ABLE TO REPOSTION SELF. PT ENCOURAGED TO CHANGE FROM SIDE TO SIDE Q2H TO PREVENT SKIN BREAKDOWN. BLANCHABLE REDNESS TO COCCYX. PT SUPPORTED WITH PILLOWS. BP CUFF MOVED TO RIGHT UPPER ARM.
--- NOTE | 2024-09-06 02:21 | NUR ---
PT AWAKE AND WATCHING TV. CARDIZEM DRIP HAS BEEN WEANED OFF. HR 85 TO 95 BPM. RHYTHM REMAINS AFIB. SLOWLY WEANING LEVOPHED. PT TOLERATING WELL. VSS. NO DISTRESS. PURWICK CHANGED.
--- NOTE | 2024-09-06 04:46 | NUR ---
PT OOB TO BSC. VOID PLUS +FLATULENCE, MINIMAL AMT LIQUID BROWN STOOL, AND MUCOUS. PT REQUIRES 2 PERSON ASSIST. SOB WITH EXERTION. O2 SAT DECREASES TO 86% WITH EXERTION WITH 02 VIA NC AT 2L. INCREASED HR TO 120 WITH EXERTION. CONTINUE CLOSE MONITORING. CONTINUE WITH PLAN TO WEAN LEVOPHED TOLERATED.
--- NOTE | 2024-09-06 04:53 | NUR ---
PT MEDICATED FOR PAIN REQUESTED. A-FIB WITH INTERMITTENT A-FLUTTER NOTED ON MONITOR. HR 89 TO 101 BPM.
--- NOTE | 2024-09-06 05:19 | NUR ---
RT CALLED FOR BREATHING TREATMENT DUE TO PT WHEEZING. MAP 67 LEVOPHED REMAINS AT 1MCG/MIN.
[2024-09-06 05:39] LABS: HEMATOCRIT 28.5 % (37.0-47.0); HEMOGLOBIN 9.1 g/dl (12.0-16.0); MEAN CELL VOLUME 90.5 fL CALC (80.0-100.0); MEAN CORPUSCULAR HGB 28.9 pG CALC (26.0-32.0); MEAN CORPUSCULAR HGB CONC 31.9 g/dL CAL (32.0-36.0); RED BLOOD COUNT 3.15 mill/uL (4.20-5.60); RED CELL DISTRI WIDTH 14.7 % (11.5-15.5)
[2024-09-06 05:49] LABS: ALBUMIN 2.1 g/dL (3.2-5.0); BILIRUBIN, TOTAL 0.5 mg/dL (0.02-1.3); CREATININE 1.7 mg/dL (0.5-1.0); MAGNESIUM 1.9 mg/dL (1.6-2.3); POTASSIUM 3.7 mmol/l (3.5-5.1); TOTAL PROTEIN 4.4 g/dL (6.3-8.2)
--- NOTE | 2024-09-06 06:35 | NUR ---
PT AWAKE IN BED. MAP 76. LEVOPHED DRIP WEANED OFF.
--- NOTE | 2024-09-06 07:43 | NUR ---
CONTACTED [facility] TO ORDER A P500 AIR MATTRESS FOR THIS PATIENT. I SPOKE WITH MEGA AT 0743 HRS. CONFIRMATION # [id number].
--- NOTE | 2024-09-06 07:47 | NUR ---
REPORT RECEIVED FROM NIGHT NURSE. PATIENT AXO X3. S1S2 NOTED, A-FIB ON TELE. UPPER LUNG SOUNDS CLEAR, LOWER DIMINISHED, NO COUGH OR SOB NOTED, ON 2L O2 NC. ABDOMEN SOFT, NON DISTENDED, WITH ACTIVE BOWEL SONDS. UPPER PULSES STRONG, LOWER WEAK. SKIN WARM AND DRY, REDNESS NOTED TO COCCYX. CALL LIGHT IN REACH.
--- NOTE | 2024-09-06 08:30 | NUR ---
PHYSICAL THERAPY AT BEDSIDE TO ASSESS AND WORK WITH PATIENT.
--- NOTE | 2024-09-06 10:00 | NUR ---
PATIENT SITTING UP IN BED WATCHING TV. ALL NEEDS MET. CALL LIGHT IN REACH.
--- NOTE | 2024-09-06 12:00 | NUR ---
PATIENT SITTING UP WATCHING TV. DENIES NEEDS AT THIS TIME. CALL LIGHT IN REACH.
[2024-09-06] MEDS ORDERED: METOPROLOL SUCCINATE 25 MG/TAB-TOPROL XL PO SCH (13:00)
--- NOTE | 2024-09-06 14:00 | NUR ---
PATIENT SITTING UP IN BED WATCHING TV. SON AT BEDSIDE. ALL NEEDS MET. CALL LIGHT IN REACH.
--- NOTE | 2024-09-06 15:00 | NUR ---
PATIENT AMBULATED UP TO CHAIR WITH MINIMAL ASSIST. BED REPLACED WITH AIR MATTRESS AND BEDDING CHANGED. CALL LIGHT IN REACH.
--- NOTE | 2024-09-06 16:00 | NUR ---
PATIENT SITTING UP IN BED. ALL NEEDS MET. CALL LIGHT IN REACH.
--- NOTE | 2024-09-06 18:00 | NUR ---
PATIENT SITTING UP IN BED EATING. ALL NEEDS MET. CALL LIGHT IN REACH.
--- NOTE | 2024-09-06 19:43 | NUR ---
REPORT RECEIVED FROM OFF-GOING NURSE. PT RESTING IN BED WITH EYES CLOSED. VSS. NO DISTRESS.
--- NOTE | 2024-09-06 20:30 | NUR ---
OOB TO BSC WITH ONE PERSON ASSIST. IMPROVED MOVEMENT WHILE TRANSFERING IN AND OUT OF BED. AIR MATTRESS IN USE. DECREASED REDNESS TO COCCYX.
--- NOTE | 2024-09-06 22:30 | NUR ---
PT RESTING NO DISTRESS. ALL NEEDS MET. CONTINUING WITH PLAN OF CARE.
--- NOTE | 2024-09-06 23:59 | NUR ---
ASSISTED PT WITH REPOSITIONING IN BED. WARM BLANKETS PROVIDED. NO DISTRESS. HR ELEVATES WITH EXERTION.
[2024-09-07] VITALS (15 sets, daily range): BP systolic 100–139; BP diastolic 50–65
--- NOTE | 2024-09-07 01:56 | NUR ---
TYLENOL GIVEN PREVIOUSLY FOR HEADACHE. LORTAB GIVEN FOR BACK AND KNEE PAIN. PT ASSISTED OOB TO BSC. THE SOB, O2 PLACED AT 3 L TEMPORARILY. PT TOLERATED WELL. PT WEANED TO ROOM AIR. PT RESTING IN BED. VSS. NO DISTRESS AFTER REST.
--- NOTE | 2024-09-07 04:00 | NUR ---
PT RESTING. NO DISTRESS. VSS.
--- NOTE | 2024-09-07 05:08 | NUR ---
MORNING LABS OBTAINED AT THIS TIME VIA CENTRAL LINE. PT TOLERATED WELL
[2024-09-07 05:41] LABS: HEMATOCRIT 28.2 % (37.0-47.0); HEMOGLOBIN 8.9 g/dl (12.0-16.0); MEAN CELL VOLUME 90.7 fL CALC (80.0-100.0); MEAN CORPUSCULAR HGB 28.6 pG CALC (26.0-32.0); MEAN CORPUSCULAR HGB CONC 31.6 g/dL CAL (32.0-36.0); RED BLOOD COUNT 3.11 mill/uL (4.20-5.60); RED CELL DISTRI WIDTH 14.8 % (11.5-15.5)
[2024-09-07 05:50] LABS: ALBUMIN 2.3 g/dL (3.2-5.0); BILIRUBIN, TOTAL 0.5 mg/dL (0.02-1.3); CREATININE 1.7 mg/dL (0.5-1.0)
--- NOTE | 2024-09-07 05:50 | NUR ---
PUREWICK EXTERNAL CATHETER IN USE FOR PT.
--- NOTE | 2024-09-07 07:14 | NUR ---
REPORT RECEIVED FROM NIGHT NURSE. PATIENT AXO X3. S1S2 NOTED, A-FIB ON TELE. UPPER LUNG SOUNDS CLEAR, LOWER DIMINISHED, NO COUGH NOTED, EXERSIONAL SOB NOTED. ABDOMEN SOFT, NON DISTENDED, NON TENDER, WITH ACTIVE BOWEL SOUNDS. UPPER PULSES STORNG, LOWER WEAK. SKIN WARM AND DRY. SCATTERED BRUSING TO UPPER EXTREMITIES. CALL LIGHT IN REACH.
--- NOTE | 2024-09-07 07:49 | NUR ---
BOOKED AN INFECTIOUS DISEASE CONSULT WITH DR CRAVEN VIA THE [facility] AT 0749 HRS.
--- NOTE | 2024-09-07 08:00 | NUR ---
PATIENT SITTING UP IN BED EATING. ALL NEEDS MET. CALL LIGHT IN REACH.
--- NOTE | 2024-09-07 08:30 | NUR ---
DR. CARROLL AT BEDSIDE TO ASSESS PATIENT AND DISCUSS PLAN OF CARE.
[2024-09-07] MEDS ORDERED: LACTULOSE 20 GM/30 ML UDC PO SCH (09:00)
[2024-09-07] MEDS ORDERED: METOPROLOL SUCCINATE 50 MG/TAB PO SCH (09:00)
--- NOTE | 2024-09-07 10:00 | NUR ---
PATIENT LAYING DOWN IN BED RESTING. ALL NEEDS MET. CALL LIGHT IN REACH.
--- NOTE | 2024-09-07 12:00 | NUR ---
PATIENT SITTING UP IN BED WATCHING TV. ALL NEEDS MET. CALL LIGHT IN REACH.
[2024-09-07] MEDS ORDERED: LEVOFLOXACIN750 MG PO (13:00)
--- NOTE | 2024-09-07 14:30 | NUR ---
Discharge instructions given. Patient verbalizes understanding of them. [facility]. All belongings sent with pt. IV removed.
--- NOTE | 2024-09-07 14:31 | NUR ---
CALLED [facility] AND GAVE REPORT TO GENE.
[2024-09-07] MEDS ORDERED: TOPROL XL50 MG PO (14:51)
--- NOTE | 2024-09-08 07:05 | NUR ---
CONTACTED [facility] TO SCHEDULE A PICKUP FOR THE P500 AIR MATTRESS ASSIGNED TO THIS PATIENT. I SPOKE WITH ZABRINA AT 0705 HRS. CONFIRMATION #[id number].
== END 2024-09-07 14:30 | DRG 871 ==
LOC: ED 17:34 → ED-I 20:00 → ED 20:39 → ICU 20:40 → ED-I 20:40 → ICU 09-01 07:00
PROVIDERS: Nurse Practitioner; ADMIT Internal Medicine; ATTEND Internal Medicine
PROC: 05HM33Z Insertion of Infusion Device into Right Internal Jugular Vein, Percutaneous Approach (ICD-10-PCS; principal; 2024-08-31)
PROC: 3E033XZ Introduction of Vasopressor into Peripheral Vein, Percutaneous Approach (ICD-10-PCS; 2024-08-31)
DX: A41.51 Sepsis due to Escherichia coli [E. coli] (principal); R65.21 Severe sepsis with septic shock; N39.0 Urinary tract infection, site not specified; N17.9 Acute kidney failure, unspecified; I13.0 Hypertensive heart and chronic kidney disease with heart failure and stage 1 through stage 4 chronic kidney disease, or unspecified chronic kidney disease; I48.91 Unspecified atrial fibrillation; E11.22 Type 2 diabetes mellitus with diabetic chronic kidney disease; I50.9 Heart failure, unspecified; N18.31 Chronic kidney disease, stage 3a; J44.9 Chronic obstructive pulmonary disease, unspecified; I25.10 Atherosclerotic heart disease of native coronary artery without angina pectoris; D69.59 Other secondary thrombocytopenia; E03.9 Hypothyroidism, unspecified; D63.1 Anemia in chronic kidney disease; F32.A Depression, unspecified; K59.00 Constipation, unspecified; E66.9 Obesity, unspecified; G72.89 Other specified myopathies; Z87.440 Personal history of urinary (tract) infections; Z79.85 Long-term (current) use of injectable non-insulin antidiabetic drugs; Z95.5 Presence of coronary angioplasty implant and graft; Z79.02 Long term (current) use of antithrombotics/antiplatelets; Z79.82 Long term (current) use of aspirin; Z68.35 Body mass index [BMI] 35.0-35.9, adult; Z87.891 Personal history of nicotine dependence; Z20.822 Contact with and (suspected) exposure to COVID-19
CPT/HCPCS: J0692; J1815

== ENCOUNTER 2024-09-11 10:35 | Observation (INO) | payer MEDICARE ==
[2024-09-11] VITALS (20 sets, daily range): BP systolic 73–157; BP diastolic 38–58
[~2024-09-11] VITALS: Ht 162.6 cm; Wt 102.0 kg
[~2024-09-11 10:35] MED LIST changes: +BAYER ASPIRIN E81 MG PO; +CLOPIDOGREL75 MG PO; +LANTUS SOL100 UNIT/M SC; +LEVOFLOXACIN750 MG PO; +MOUNJARO7.5 M1 SC
[2024-09-11] MEDS ORDERED: HYDROcodone/Acetaminophen 1 COMBO TAB PO ONE (12:10)
[2024-09-11 12:29] LABS: BASO% 0.1 % (0-3); HEMATOCRIT 27.1 % (37.0-47.0); HEMOGLOBIN 8.6 g/dl (12.0-16.0); IMMATURE GRANULOCYTES 0.7 % (0.0-5.0); LYMPH% 8.7 % (15-41); MEAN CELL VOLUME 91.9 fL CALC (80.0-100.0); MEAN CORPUSCULAR HGB 29.2 pG CALC (26.0-32.0); MEAN CORPUSCULAR HGB CONC 31.7 g/dL CAL (32.0-36.0); MONO% 4.2 % (2-13); NEUT# 8.66 thou/uL (2.00-7.15); NEUT% 86.3 % (42-76); RED BLOOD COUNT 2.95 mill/uL (4.20-5.60); RED CELL DISTRI WIDTH 14.9 % (11.5-15.5)
[2024-09-11 12:39] LABS: CREATININE 1.1 mg/dL (0.5-1.0); POTASSIUM 3.8 mmol/l (3.5-5.1)
[2024-09-11 13:25] LABS: URINE BILIRUBIN - DIPSTICK Negative (NEGATIVE); URINE BLOOD DIPSTICK Trace-lysed (NEGATIVE); URINE GLUCOSE - DIPSTICK Negative (NEGATIVE); URINE KETONE Negative (NEGATIVE); URINE LEUK ESTERASE Negative (NEGATIVE); URINE NITRITE - DIPSTICK Negative (Negative); URINE PH 5.5 (4.5-8.0); URINE PROTEIN - DIPSTICK Trace mg/dL (NEG-TRACE); URINE UROBILINOGEN - DIPSTICK 0.2 E.U./dL (0.2)
[2024-09-11] MEDS ORDERED: MAGNESIUM HYDROXIDE 30 ML UDC PO PRN (13:25)
[2024-09-11] MEDS ORDERED: ACETAMINOPHEN 325 MG/TAB PO PRN (13:25)
[2024-09-11] MEDS ORDERED: HYDROcodone/Acetaminophen 1 COMBO TAB PO PRN (13:30)
[2024-09-11] MEDS ORDERED: clonazePAM 1 MG/TAB PO PRN (13:30)
[2024-09-11] MEDS ORDERED: SODIUM CHLORIDE 0.9% 500 ML IV ONE (14:20)
[2024-09-11] MEDS ORDERED: SODIUM CHLORIDE 0.9% 1,000 ML IV PRN (14:20)
[2024-09-11] MEDS ORDERED: DEXTROSE 250 ML IV PRN (14:25)
[2024-09-11 16:33] LABS: URINE COLOR Yellow
[2024-09-11] MEDS ORDERED: INSULIN LISPRO 100 UNITS/ML ML SC SCH ×2 (17:00)
[2024-09-11] MEDS ORDERED: SENNOSIDES-Docusate Sodium 1 COMBO TAB PO SCH (21:00)
[2024-09-11] MEDS ORDERED: APIXABAN BASE 2.5 MG/TAB TAB PO SCH (21:00)
[2024-09-11] MEDS ORDERED: AMITRIPTYLINE HCL 25 MG TAB PO SCH (21:00)
[2024-09-11] MEDS ORDERED: DONEPEZIL HCL 5 MG/TAB PO SCH (21:00)
[2024-09-11] MEDS ORDERED: ATORVASTATIN CALCIUM 40 MG/TAB PO SCH (21:00)
[2024-09-11] MEDS ORDERED: risperiDONE 2 MG/TAB PO SCH (21:00)
[2024-09-12] VITALS (8 sets, daily range): BP systolic 122–148; BP diastolic 34–66
[2024-09-12 05:29] LABS: HEMATOCRIT 25.1 % (37.0-47.0); HEMOGLOBIN 7.8 g/dl (12.0-16.0); IMMATURE GRANULOCYTES 0.8 % (0.0-5.0); LYMPH% 16.2 % (15-41); MEAN CELL VOLUME 93.7 fL CALC (80.0-100.0); MEAN CORPUSCULAR HGB 29.1 pG CALC (26.0-32.0); MEAN CORPUSCULAR HGB CONC 31.1 g/dL CAL (32.0-36.0); MONO% 7.3 % (2-13); NEUT# 5.79 thou/uL (2.00-7.15); NEUT% 75.7 % (42-76); RED BLOOD COUNT 2.68 mill/uL (4.20-5.60); RED CELL DISTRI WIDTH 15.2 % (11.5-15.5)
[2024-09-12 05:31] LABS: ALBUMIN 2.1 g/dL (3.2-5.0); BILIRUBIN, TOTAL 0.6 mg/dL (0.02-1.3); CREATININE 1.1 mg/dL (0.5-1.0); MAGNESIUM 2.1 mg/dL (1.6-2.3); POTASSIUM 3.4 mmol/l (3.5-5.1); TOTAL PROTEIN 4.6 g/dL (6.3-8.2)
[2024-09-12] MEDS ORDERED: LEVOTHYROXINE SODIUM 75 MCG/TAB PO SCH (06:00)
[2024-09-12] MEDS ORDERED: METOPROLOL SUCCINATE 50 MG/TAB PO SCH (09:00)
[2024-09-12] MEDS ORDERED: CLOPIDOGREL BISULFATE 75 MG/TAB TAB PO SCH (09:00)
[2024-09-12] MEDS ORDERED: LOSARTAN Potassium 50 MG/TAB PO SCH (09:00)
[2024-09-12] MEDS ORDERED: levoFLOXacin hemihydrate 250 MG/TAB PO SCH (09:00)
[2024-09-12] MEDS ORDERED: amLODIPine BESYLATE 5 MG/TAB PO SCH (09:00)
[2024-09-12] MEDS ORDERED: INSULIN GLARGINE 100 UNITS/ML SC SCH (09:00)
[2024-09-12] MEDS ORDERED: OXYBUTYNIN 5 MG/TAB PO SCH (09:00)
[2024-09-12] MEDS ORDERED: FUROSEMIDE 20 MG/TAB PO SCH (09:00)
[2024-09-12 10:23] LABS: HEMATOCRIT 25.5 % (37.0-47.0)
[2024-09-12] MEDS ORDERED: SODIUM CHLORIDE 0.9% 250 ML IV ONE (14:50)
[2024-09-13 03:47] VITALS: BP 149/49
[2024-09-13 05:38] LABS: BASO% 0.1 % (0-3); HEMATOCRIT 30.2 % (37.0-47.0); HEMOGLOBIN 9.7 g/dl (12.0-16.0); IMMATURE GRANULOCYTES 0.4 % (0.0-5.0); LYMPH% 18.2 % (15-41); MEAN CELL VOLUME 89.1 fL CALC (80.0-100.0); MEAN CORPUSCULAR HGB 28.6 pG CALC (26.0-32.0); MEAN CORPUSCULAR HGB CONC 32.1 g/dL CAL (32.0-36.0); MONO% 7.5 % (2-13); NEUT# 5.5 thou/uL (2.00-7.15); NEUT% 73.8 % (42-76); RED BLOOD COUNT 3.39 mill/uL (4.20-5.60); RED CELL DISTRI WIDTH 16.1 % (11.5-15.5)
[2024-09-13 05:48] LABS: ALBUMIN 2.3 g/dL (3.2-5.0); BILIRUBIN, TOTAL 0.7 mg/dL (0.02-1.3); CREATININE 1.1 mg/dL (0.5-1.0); MAGNESIUM 1.9 mg/dL (1.6-2.3); POTASSIUM 3.6 mmol/l (3.5-5.1)
[2024-09-13 07:09] VITALS: BP 143/52
[2024-09-13] MEDS ORDERED: LIDOCAINE 4 % PATCH TD SCH (13:00)
[2024-09-13] MEDS ORDERED: METHOCARBAMOL 500 MG/TAB PO SCH (13:00)
[2024-09-13 15:27] VITALS: BP 146/49
[2024-09-13 15:36] VITALS: BP 146/49
[2024-09-14 04:14] VITALS: BP 125/39
[2024-09-14 05:37] LABS: BASO% 0.1 % (0-3); HEMATOCRIT 29.1 % (37.0-47.0); HEMOGLOBIN 9.2 g/dl (12.0-16.0); IMMATURE GRANULOCYTES 0.3 % (0.0-5.0); LYMPH% 15.1 % (15-41); MEAN CELL VOLUME 89.5 fL CALC (80.0-100.0); MEAN CORPUSCULAR HGB 28.3 pG CALC (26.0-32.0); MEAN CORPUSCULAR HGB CONC 31.6 g/dL CAL (32.0-36.0); MONO% 8.6 % (2-13); NEUT# 5.57 thou/uL (2.00-7.15); NEUT% 75.9 % (42-76); RED BLOOD COUNT 3.25 mill/uL (4.20-5.60); RED CELL DISTRI WIDTH 15.7 % (11.5-15.5)
[2024-09-14 05:56] LABS: ALBUMIN 2.2 g/dL (3.2-5.0); BILIRUBIN, TOTAL 0.5 mg/dL (0.02-1.3); CREATININE 1.1 mg/dL (0.5-1.0); MAGNESIUM 1.7 mg/dL (1.6-2.3); POTASSIUM 3.5 mmol/l (3.5-5.1); TOTAL PROTEIN 4.7 g/dL (6.3-8.2)
[2024-09-14 06:47] VITALS: BP 134/40
[2024-09-14 07:02] VITALS: BP 134/40
[2024-09-14] MEDS ORDERED: LIDOCAINE PAIN RE4 % TD (13:37)
[2024-09-14] MEDS ORDERED: METHOCARBAMOL500 MG PO (13:38)
[2024-09-14 15:16] VITALS: BP 155/42
[2024-09-14 16:02] VITALS: BP 155/42
== END 2024-09-14 19:30 | disposition home health service (06) ==
LOC: ED 10:35 → ED-I 12:25 → ED 12:38 → MS2 12:39
PROVIDERS: Family Medicine; Nurse Practitioner Family; ADMIT Student in an Organized Health Care Education/Training Program; ATTEND Student in an Organized Health Care Education/Training Program
PROC: 30233N1 Transfusion of Nonautologous Red Blood Cells into Peripheral Vein, Percutaneous Approach (ICD-10-PCS; principal; 2024-09-12)
DX: M25.551 Pain in right hip (principal); R53.1 Weakness; M54.41 Lumbago with sciatica, right side; M16.0 Bilateral primary osteoarthritis of hip; I12.9 Hypertensive chronic kidney disease with stage 1 through stage 4 chronic kidney disease, or unspecified chronic kidney disease; E11.22 Type 2 diabetes mellitus with diabetic chronic kidney disease; N18.31 Chronic kidney disease, stage 3a; I48.91 Unspecified atrial fibrillation; J44.9 Chronic obstructive pulmonary disease, unspecified; D64.9 Anemia, unspecified; I25.10 Atherosclerotic heart disease of native coronary artery without angina pectoris; E03.9 Hypothyroidism, unspecified; E66.9 Obesity, unspecified; E78.5 Hyperlipidemia, unspecified; F31.9 Bipolar disorder, unspecified; Z79.01 Long term (current) use of anticoagulants; Z87.891 Personal history of nicotine dependence; Z79.4 Long term (current) use of insulin
CPT/HCPCS: J1815; P9016

== ENCOUNTER 2024-09-24 11:03 | Observation (INO) | payer MEDICARE ==
[2024-09-24] VITALS (58 sets, daily range): BP systolic 67–146; BP diastolic 24–82
[~2024-09-24] VITALS: Ht 162.6 cm; Wt 99.1 kg
[~2024-09-24 11:03] MED LIST changes: +LIDOCAINE PAIN RE4 % TD; +METHOCARBAMOL500 MG PO
--- NOTE | 2024-09-24 11:09 | NUR ---
PATIENT TO ROOM 15 VIA EMS
[2024-09-24] MEDS ORDERED: SODIUM CHLORIDE 0.9% 1,000 ML IV ONE ×4 (11:17→12:40)
[2024-09-24] MEDS ORDERED: PIPERACILLIN Sodium-Tazobactam 3.375 GM in SODIUM CHLORIDE 0.9% 100 ML IV ONE (11:25)
--- NOTE | 2024-09-24 12:03 | NUR ---
Reassessment of patient completed. No distress noted.
[2024-09-24 12:13] LABS: BASO% 0.2 % (0-3); HEMATOCRIT 24.2 % (37.0-47.0); HEMOGLOBIN 7.4 g/dl (12.0-16.0); IMMATURE GRANULOCYTES 0.4 % (0.0-5.0); LYMPH% 22.4 % (15-41); MEAN CELL VOLUME 92.7 fL CALC (80.0-100.0); MEAN CORPUSCULAR HGB 28.4 pG CALC (26.0-32.0); MEAN CORPUSCULAR HGB CONC 30.6 g/dL CAL (32.0-36.0); MONO% 13.2 % (2-13); NEUT# 3.2 thou/uL (2.00-7.15); NEUT% 63.8 % (42-76); RED BLOOD COUNT 2.61 mill/uL (4.20-5.60); RED CELL DISTRI WIDTH 14.7 % (11.5-15.5)
[2024-09-24 12:31] LABS: ALBUMIN 2.2 g/dL (3.2-5.0); BILIRUBIN, TOTAL 0.7 mg/dL (0.02-1.3); CREATININE 1.8 mg/dL (0.5-1.0)
[2024-09-24 12:37] LABS: POTASSIUM 4.3 mmol/l (3.5-5.1)
[2024-09-24] MEDS ORDERED: ONDANSETRON HCl 4 MG/2 ML SDV IV ONE (13:05)
[2024-09-24] MEDS ORDERED: GLUCAGON HCL (Rdna) 1 MG VIAL IV ONE (13:05)
--- NOTE | 2024-09-24 13:10 | NUR ---
PATIENT FOUND WITH 4X4 MEPIPLEX DRESSING IN PLACE TO COCCYX, OPEN WOUND UNDER.
--- NOTE | 2024-09-24 13:52 | NUR ---
PATIENT ARRIVED TO THE UNIT VIA STRETCHER ACCOMPANIED BY STAFF. REPORT RECEIVED FROM SMUA KELLEY. ASSESSMENT COMPLTED. PATIENT ALERT AND ORIENTED X 4. C/O R HIP PAIN, WILL MEDICATE ACCORDING TO EMAR. LUNGS CLEAR/DIMINISHED TO ASCULTATION. PATIENT ORIENTED TO ROOM AND CALL FISCHER SYSTEM. CALL LIGHT PLACED IN R HAND. BED ADJUSTMENT REMOTE PLACED IN L HAND. SAFETY MEASURES IN PLACE INCLUDING BED IN LOW POSITION. VITAL SIGNS STABLE. NO APPARENT DISTRESS NOTED. WILL CONTINUE WITH PLAN OF CARE.
--- NOTE | 2024-09-24 14:10 | NUR ---
ED PHYSICIAN BEDSIDE WITH PATIENT FOR OCCULT STOOL SAMPLE
[2024-09-24] MEDS ORDERED: SODIUM CHLORIDE 0.9% 1,000 ML IV PRN (14:55)
[2024-09-24] MEDS ORDERED: ACETAMINOPHEN 325 MG/TAB PO PRN (14:55)
[2024-09-24] MEDS ORDERED: MAGNESIUM HYDROXIDE 30 ML UDC PO PRN (14:55)
--- NOTE | 2024-09-24 15:31 | NUR ---
NURSE TO NURSE REPORT COMPLETED WITH MACHO MOISE
[2024-09-24] MEDS ORDERED: INSULIN LISPRO 100 UNITS/ML ML SC SCH (17:00)
[2024-09-24] MEDS ORDERED: SODIUM CHLORIDE 0.9% 250 ML BAG IV SCH (17:15)
--- NOTE | 2024-09-24 18:00 | NUR ---
PATIENT LYING IN BED RESTING. VSS. NO APPARENT DISTRESS NOTED. WILL CONTINUE WITH PLAN OF CARE
--- NOTE | 2024-09-24 19:00 | NUR ---
RECEIVED PATIENT IN BEDSIDE NURSE TO NURSE REPORT. PATIENT WAS REPORTEDLY TRANSFERRED TO ICU FROM ED AROUND 1700PM. CURRENTLY RECEIVING 1-UNIT PRBC VIA 18LAC, INFUSION RUNNING WITHOUT COMPLICATIONS, IV REMAINS PATENT WITH NO SIGN OF INFILTRATON OR COMPLICATION. EDUCATED ELECTROPHYSIOLOGY TECHNICIAN LIGHT AND FALL PRECAUTIONS - DEMONSTRATED UNDERSTANDING. BED IN LOW POSITION WITH CALL LIGHT WITHIN REACH
[2024-09-24 20:13] LABS: URINE BILIRUBIN - DIPSTICK Negative (NEGATIVE); URINE BLOOD DIPSTICK Negative (NEGATIVE); URINE GLUCOSE - DIPSTICK Negative (NEGATIVE); URINE KETONE Negative (NEGATIVE); URINE LEUK ESTERASE Trace (NEGATIVE); URINE NITRITE - DIPSTICK Negative (Negative); URINE PH 5.5 (4.5-8.0); URINE PROTEIN - DIPSTICK 30 mg/dL (NEG-TRACE); URINE SPECIFIC GRAVITY 1.015
--- NOTE | 2024-09-24 20:15 | NUR ---
1 UNIT PRBC TRANSFUSION COMPLETED PER MD ORDER. COMPLETION VITALS OBTAINED AND ENTERED. NO REACTION OR CONCERNS NOTED AT THIS TIME. PATIENT DENIES PAIN, DENIES SOB. ASSIST TO REPOSITION WITH OFFLOADING OF HEELS FOR COMFORT. RESTING WELL WITH CALL LIGHT WITHIN REACH
[2024-09-24 20:20] LABS: URINE COLOR Yellow
[2024-09-24 20:21] LABS: URINE RBC 0-2 RBC/hpf (0-5); URINE WBC 0-2 WBC/hpf (0-5)
[2024-09-24 20:22] LABS: URINE SQUAMOUS EPITHELIAL CELL FEW EPI/hpf (0-FEW); URINE YEAST FEW hpf
[2024-09-24] MEDS ORDERED: ATORVASTATIN CALCIUM 40 MG/TAB PO SCH (21:00)
[2024-09-24] MEDS ORDERED: AMITRIPTYLINE HCL 25 MG TAB PO SCH (21:00)
[2024-09-24] MEDS ORDERED: DONEPEZIL HCL 5 MG/TAB PO SCH (21:00)
[2024-09-25] VITALS (48 sets, daily range): BP systolic 126–167; BP diastolic 43–116
--- NOTE | 2024-09-25 | NUR ---
ASSIST TO REPOSITION PER PT REQUEST. PATIENT DENIES PAIN/SOB AT THIS TIME. NO SIGNS OF DISTRESS NOTED. RESTING CALMLY WITH FALL PRECAUTIONS IN PLACE AND CALL LIGHT WITHIN REACH
--- NOTE | 2024-09-25 05:36 | NUR ---
PATIENT REMAINS STABLE WITH NO COMPLAINTS, RESTING CALMLY WITH CALL LIGHT IN REACH. PUREWICK CHANGED, BED LINEN AND DRAW SHEET CHANGED.
[2024-09-25] MEDS ORDERED: LEVOTHYROXINE SODIUM 75 MCG/TAB PO SCH (06:00)
[2024-09-25 07:51] LABS: HEMATOCRIT 30.1 % (37.0-47.0); HEMOGLOBIN 9.1 g/dl (12.0-16.0); MEAN CELL VOLUME 93.5 fL CALC (80.0-100.0); MEAN CORPUSCULAR HGB 28.3 pG CALC (26.0-32.0); MEAN CORPUSCULAR HGB CONC 30.2 g/dL CAL (32.0-36.0); RED BLOOD COUNT 3.22 mill/uL (4.20-5.60); RED CELL DISTRI WIDTH 14.3 % (11.5-15.5)
[2024-09-25 08:08] LABS: ALBUMIN 2.4 g/dL (3.2-5.0); BILIRUBIN, TOTAL 0.8 mg/dL (0.02-1.3); CREATININE 1.3 mg/dL (0.5-1.0); POTASSIUM 4.2 mmol/l (3.5-5.1); TOTAL PROTEIN 5.2 g/dL (6.3-8.2)
--- NOTE | 2024-09-25 08:17 | NUR ---
PATIENT LYING IN BED. ASSESSMENT COMPLETED. PATIENT ALERT AND ORIENTED X 3. C/O GOMEZ PAIN, WILL MEDICATE ACCORDING TO EMAR. LUNGS CLEAR/DIMINISHED TO ASCULTATION. BEATHING EVEN AND UNLABORED ON ROOM AIR. SR ON THE MONITOR. BLOOD PRESSURE STABLE AT 145/70. SAFETY MEASURES IN PLACE INCLUDING BED IN LOW POSITION AND CALL LIGHT RESTING NEXT TO R HAND. NO APPARENT DISTRESS NOTED. WILL CONTINUE WITH PLAN OF CARE. GLU 100. AFEBRILE 98.8.
--- NOTE | 2024-09-25 08:34 | NUR ---
ATTEMPTED TO PULL TYLENOL FROM PYXIS. HARDWARE MALFUNCTIONED. KATHY MORTON IN MED ROOM TO FIX.
[2024-09-25] MEDS ORDERED: OXYBUTYNIN 5 MG/TAB PO SCH (09:00)
[2024-09-25] MEDS ORDERED: INSULIN GLARGINE 100 UNITS/ML SC SCH (09:00)
[2024-09-25] MEDS ORDERED: ELIQUIS2.5 MG PO (11:03)
[2024-09-25] MEDS ORDERED: TIZANIDINE4 MG PO (11:14)
[2024-09-25] MEDS ORDERED: HYDROcodone/Acetaminophen 1 COMBO TAB PO PRN (11:40)
[2024-09-25] MEDS ORDERED: clonazePAM 1 MG/TAB PO PRN (11:40)
[2024-09-25] MEDS ORDERED: METOPROLOL SUCCINATE 50 MG/TAB PO SCH (12:00)
[2024-09-25] MEDS ORDERED: CLOPIDOGREL BISULFATE 75 MG/TAB TAB PO SCH (12:00)
--- NOTE | 2024-09-25 12:00 | NUR ---
ROUDING COMPLETE. PATIENT REPOSITIONED TO R SIDE REQUSTED. VSS. NO ADDITIONAL CONCERNS AT THIS TIME. NO APPARENT DISTRESS NOTED. WILL CONTINUE WITH PLAN OF CARE.
[2024-09-25] MEDS ORDERED: APIXABAN BASE 2.5 MG/TAB TAB PO SCH (12:30)
[2024-09-25] MEDS ORDERED: hydrALAZINE HCL 20 MG/ML VIAL(1 ML) IV PRN (14:00)
--- NOTE | 2024-09-25 16:00 | NUR ---
PATIENT LYING IN BED RESTING, WATCHING TV. ALL NEEDS MET. VSS. WILL CONTINUE WITH PLAN OF CARE
--- NOTE | 2024-09-25 19:37 | NUR ---
Pt is alert and orient. She is able to make needs known. Patient assessment complete. Pt lungs are clear breathing even and non-labored on rooom air. SHY skin tear with scattered bruising on the arms. Safety measures remain in place. Bed in low position with call light within reach.
[2024-09-25] MEDS ORDERED: risperiDONE 0.5 MG/TAB PO SCH (21:00)
--- NOTE | 2024-09-26 00:05 | NUR ---
Pt is laying on her back with her eyes closed. No distress noted. No complaint of pain or discmfort at this time. Safety measures in place with call light within reach.
[2024-09-26 00:10] VITALS: BP 110/36
[2024-09-26 03:49] VITALS: BP 155/46
--- NOTE | 2024-09-26 04:06 | NUR ---
Pt is resting in bed comfortably with her eyes closed. No s/s of pain or discomfot. NO distress noted. Call gallardo in reach, bed in low position.
[2024-09-26 05:24] LABS: HEMOGLOBIN 8.9 g/dl (12.0-16.0); IMMATURE GRANULOCYTES 0.5 % (0.0-5.0); LYMPH% 32.4 % (15-41); MEAN CELL VOLUME 96.8 fL CALC (80.0-100.0); MEAN CORPUSCULAR HGB 28.7 pG CALC (26.0-32.0); MEAN CORPUSCULAR HGB CONC 29.7 g/dL CAL (32.0-36.0); MONO% 14.6 % (2-13); NEUT# 2.09 thou/uL (2.00-7.15); NEUT% 52.5 % (42-76); RED BLOOD COUNT 3.1 mill/uL (4.20-5.60); RED CELL DISTRI WIDTH 14.2 % (11.5-15.5)
[2024-09-26 05:36] LABS: ALBUMIN 2.2 g/dL (3.2-5.0); BILIRUBIN, TOTAL 0.6 mg/dL (0.02-1.3); CREATININE 1.1 mg/dL (0.5-1.0); MAGNESIUM 1.8 mg/dL (1.6-2.3); POTASSIUM 4.1 mmol/l (3.5-5.1); TOTAL PROTEIN 4.8 g/dL (6.3-8.2)
--- NOTE | 2024-09-26 07:00 | NUR ---
SHIFT CHANGE REPORT, PT AWAKE ALERT AND ORIENTED RESTING IN BED, C/O RIGHT HIP ACHING PAIN @ 5/10, TELE MONITOR IN PLACE, PUREWICK CATHETER IN PLACE WITH RANDI CLOUDY URINE, CALL FISCHER IN REACH AND BED LOCKED IN LOWEST POSITION.
[2024-09-26 07:08] VITALS: BP 163/52
[2024-09-26] MEDS ORDERED: FUROSEMIDE 20 MG/TAB PO SCH (09:00)
[2024-09-26] MEDS ORDERED: LOSARTAN Potassium 50 MG/TAB PO SCH (09:00)
[2024-09-26 11:33] VITALS: BP 135/68
--- NOTE | 2024-09-26 12:00 | NUR ---
PAIN CONCERN ADDRESSED. PT WANTS TO KNOW WHEN SHE WILL BE DISCHARGED, INFORMED NURSING WILL PROCESS ORDERS IN TIMELY MANNER. FAMILY MEMBER INFORMED PT'S D/C HAS BEEN DONE, SAID WILL TAKE ABOUT 1 HR TO GET HERE WITH TRANSPORTATION.
--- NOTE | 2024-09-26 15:06 | NUR ---
Discharge instructions given. Patient verbalizes understanding of same. Discharged in stable condition via Medical Transport to Home with *Other. All belongings sent with pt.
== END 2024-09-26 14:58 ==
LOC: ED 11:03 → ICU 14:26 → MS2 09-25 18:23
PROVIDERS: Emergency Medicine; ADMIT Internal Medicine; ATTEND Internal Medicine
PROC: 30233N1 Transfusion of Nonautologous Red Blood Cells into Peripheral Vein, Percutaneous Approach (ICD-10-PCS; principal; 2024-09-24)
DX: I95.2 Hypotension due to drugs (principal); T40.2X5A Adverse effect of other opioids, initial encounter; T48.205A Adverse effect of unspecified drugs acting on muscles, initial encounter; T46.5X5A Adverse effect of other antihypertensive drugs, initial encounter; D64.9 Anemia, unspecified; I12.9 Hypertensive chronic kidney disease with stage 1 through stage 4 chronic kidney disease, or unspecified chronic kidney disease; E11.22 Type 2 diabetes mellitus with diabetic chronic kidney disease; J43.9 Emphysema, unspecified; I48.91 Unspecified atrial fibrillation; I25.10 Atherosclerotic heart disease of native coronary artery without angina pectoris; N18.31 Chronic kidney disease, stage 3a; M54.41 Lumbago with sciatica, right side; E03.9 Hypothyroidism, unspecified; Z87.891 Personal history of nicotine dependence; Z79.4 Long term (current) use of insulin; Z79.01 Long term (current) use of anticoagulants; Z79.891 Long term (current) use of opiate analgesic
CPT/HCPCS: J1610; J1815; J2405; J2543; P9016

== ENCOUNTER 2024-10-01 16:13 | Emergency (ER) | payer MEDICARE ==
[~2024-10-01] VITALS: Ht 162.6 cm; Wt 104.3 kg
[2024-10-01] VITALS (12 sets, daily range): BP systolic 96–145; BP diastolic 44–70
[~2024-10-01 16:13] MED LIST changes: +ELIQUIS2.5 MG PO; +TIZANIDINE4 MG PO
[2024-10-01] MEDS ORDERED: MORPHINE SULFATE 4 MG/ML VIAL IM ONE (16:40)
[2024-10-01] MEDS ORDERED: ONDANSETRON HCl 4 MG/2 ML SDV IM ONE (16:40)
[2024-10-01] MEDS ORDERED: TRAMADOL HYDROC50 M1 PO (19:16)
== END 2024-10-01 21:32 | disposition home or self-care (01) ==
LOC: ED 16:13
DX: M54.31 Sciatica, right side (principal); I10 Essential (primary) hypertension; E11.9 Type 2 diabetes mellitus without complications; J44.9 Chronic obstructive pulmonary disease, unspecified; F32.A Depression, unspecified; Z79.4 Long term (current) use of insulin
CPT/HCPCS: J2405